=== PATIENT | female | born 1990 | race Hispanic/Latino ===

== ENCOUNTER 2018-09-22 15:10 | Inpatient (IN) | payer OTHER ==
--- OUTSIDE RECORDS SUMMARY | 2018-09-25 04:37 | XMS REPORT | Continuity of Care Document ---
:1990 Author Organization Interface Problems Problem Status Onset Classification Date Comments Source Date Reported CTX Active [address] VAGINAL DEL Active [address] Resolved Problem 12/17/[address] Medications Medication Details Route Status Patient Ordering Order Source Instructions Provider Date tramadol 50 mg=1 tab, PO, Active [place] hydrochloride 50 Q4H, PRN Pain 2017 Medical [facility] Oral Tablet Score 4-6, X 7 Center day, # 42 tab, 0 Refill(s) ibuprofen 600 mg 600 mg=1 tab, Active [facility] oral tablet PO, Q6H, X 14 2016 Medical day, # 56 tab, 0 Center Refill(s) fentaNYL (ANES) Route: IV, Drug Inactive [facility] form: INJ, ONCE, 2016 Medical Stop date: [place] 12/13/16 13:07:00 CDT bupivacaine (ANES) Route: Inactive 12/13[facility] INTRATHECAL, 2016 Medical Drug Form: INJ, [place] ONCE, Stop date: 12/13/16 13:07:00 CDT metoclopramide Route: IV, Drug Inactive [facility] (ANES) form: INJ, ONCE, 2016 Medical Stop date: [place] 12/13/16 13:07:00 CDT famotidine (ANES) Route: IV, Drug Inactive 12/13[facility] form: INJ, ONCE, 2016 Medical Stop date: [place] 12/13/16 13:07:00 CDT ondansetron (ANES) Route: IV, Drug Inactive 12/13[facility] form: INJ, ONCE, 2016 Medical Stop date: [place] 12/13/16 13:07:00 CDT morphine Sulfate Route: IV, Drug Inactive Kadi (ANES) form: INJ, ONCE, 2016 Medical Stop date: [place] 12/13/16 13:02:00 CDT Ondansetron 4 mg, 2 mL, No Longer [facility] Route: IVP, Drug Active 2017 Medical form: INJ, ONCE, Center Dosing Weight 78.636, kg, PRN Nausea & Vomiting, Start date: 12/13/16 12:39:00 CDTNotes: (Same as: Zofran) MEDICATION WASTE Product Size: 4 mg Product Wasted: ___ mg Flumazenil 0.2 mg, 2 mL, No Longer [place] Route: IVP, Drug Active 2016 Medical form: INJ, PRN, Center Dosing Weight 78.636, kg, PRN Benzodiazepine Reversal, Initial dose, Start date: 12/13/16 12:39:00 CDT, Duration: 30 day, Stop date: 01/12/17 12:38:00 CDTNotes: (Same as: Romazicon) Hydromorphone 0.5 mg, 0.25 mL, No Longer [place] Route: IVP, Drug Active 2016 Medical form: INJ, Center Q5Min, Dosing Weight 78.636, kg, PRN Pain Score 7-10, Start date: 12/13/16 12:39:00 CDT, Duration: 4 doses or times, Stop date: 12/14/16 0:00:00 CDTNotes: Same as: Dilaudid Ketorolac 30 mg, 1 mL, Inactive [place] Route: IVP, Drug 2016 Medical form: INJ, ONCE, Center Dosing Weight 78.636, kg, Start date: 12/13/16 12:39:00 CDT, Duration: 1 doses or times, Stop date: 12/13/16 12:39:00 CDTNotes: (Same as:Toradol) IV bolus must be given >15 seconds. Give IM administration slowly and deeply into the muscle. Not for use > 4 days MEDICATION WASTE Product Size: 30 mg Product Wasted: ___ mg Ephedrine 5 mg, 1 mL, No Longer [place] Route: IVP, Drug Active 2016 Medical form: INJ, Center Q5Min, Dosing Weight 78.636, kg, PRN Low Blood Pressure, Start date: 12/13/16 12:39:00 CDT, Duration: 30 day, Stop date: 01/12/17 12:38:00 CDT Naloxone 0.4 mg, 1 mL, No Longer [place] Route: IVP, Drug Active 2016 Medical form: INJ, Center Q2MIN, Dosing Weight 78.636, kg, PRN Narcotic Reversal, Start date: 12/13/16 12:39:00 CDT, Duration: 8 doses or times, Stop date: 12/14/16 0:00:00 CDTNotes: Same as Narcan Fentanyl 25 microgram, No Longer [facility] 0.5 mL, Route: Active 2017 Medical IVP, Drug form: Center INJ, Q5Min, Dosing Weight 78.636, kg, PRN Pain Score 4-6, Priority: Routine, Start date: 12/13/16 12:39:00 CDT, Duration: 4 doses or times, Stop date: 12/14/16 0:00:00 CDTNotes: (Same as: Sublimaze) Preservative free. Labetalol 10 mg, 2 mL, No Longer [place] Route: IVP, Drug Active 2016 Medical form: INJ, Center Q5Min, Dosing Weight 78.636, kg, PRN Elevated BP, Start date: 12/13/16 12:39:00 CDT, Duration: 5 doses or times, Stop date: 12/14/16 0:00:00 CDT Hydralazine 10 mg, 0.5 mL, No Longer [place] Route: IVP, Drug Active 2016 Medical form: INJ, Center Q20Min, Dosing Weight 78.636, kg, PRN Elevated BP, Start date: 12/13/16 12:39:00 CDT, Duration: 2 doses or times, Stop date: 12/14/16 0:00:00 CDTNotes: (Same as: Apresoline) Push over 5 minutes Promethazine 6.25 mg, 0.25 No Longer [place] mL, Route: IVPB, Active 2016 Medical Drug form: INJ, Center ONCE, Dosing Weight 78.636, kg, PRN Nausea & Vomiting, Start date: 12/13/16 12:39:00 CDTNotes: Do not give IV push. (Same as: Phenergan) LR 1000 mL INJ Route: IV, Total Inactive Kadi (ANES) Volume: 1,000, 2017 Medical Start date: Center 12/13/16 12:08:00 CDT, Stop date: 12/13/16 13:08:00 CDT 1 tab, Route: No Longer [place] Multivitamins oral PO, Drug Form: Active 2017 Medical tablet TAB, Dosing Center Weight 78.636, kg, Daily, Start date: 12/13/16 9:00:00 CDT, Duration: 30 day, Stop date: 01/11/17 9:00:00 CDT Ibuprofen 600 mg, 1 tab, No Longer [place] Route: PO, Drug Active 2016 Medical form: TAB, Q6H, Center Dosing Weight 78.636, kg, Start date: 12/13/16 6:00:00 CDT, Duration: 30 day, Stop date: 01/12/17 0:00:00 CDTNotes: (Same as: Guillermina) "Do Not Crush" Take with food. 0.5 ML Bordetella 0.5 mL, Route: No Longer [place] pertussis IM, Drug Form: Active 2017 Medical filamentous SUSP, Dosing Center hemagglutinin Weight 78.636, vaccine, kg, ONCALL, inactivated 0.01 Start date: MG/ML / Bordetella 12/13/16 1:00:00 pertussis fimbriae CDT, Duration: 1 2/3 vaccine, doses or inactivated 0.01 timesNotes: MG/ML / Bordetella (Tdap ) For pertussis Adolecent and pertactin vaccine, Adult use For IM inactivated 0.006 Use. Same as: MG/ML / Bordetella Adacel (Tdap) pertussis toxoid vacci M-M-R II 0.5 mL, Route: No Longer [place] SUB-Q, Drug Active 2016 Medical Form: PDR/INJ, Center Dosing Weight 78.636, kg, ONCALL, Give only if patient rubella non-immune, Start date: 12/13/16 1:00:00 CDT, Duration: 1 doses or timesNotes: (Same as: M-M-R II) (xkujaxd-ioqso-x ubella virus vaccine 0.5 ml INJ VL) WASTE: F/P - Red; E -Red GIVE PRIOR TO DISCHARGE Tramadol 100 mg, 2 tab, No Longer [place] Route: PO, Drug Active 2016 Medical form: TAB, Q6H, Center Dosing Weight 78.636, kg, PRN Pain Score 7-10, Start date: 12/13/16 0:13:00 CDT, Duration: 30 day, Stop date: 01/12/17 0:12:00 CDTNotes: Not to exceed 400mg/day. (Same As: Ultram) Methylergonovine 0.2 mg, 1 mL, No Longer [place] Route: IM, Drug Active 2016 Medical form: INJ, PRN, Center Dosing Weight 78.636, kg, PRN Other -See Comment, Start date: 12/13/16 0:13:00 CDT, Duration: 30 day, Stop date: 01/12/17 0:12:00 CDTNotes: (Same as:Methergine) Benzocaine 200 1 spray, Route: No Longer [place] MG/ML Topical TOP, PRN, Drug Active 2016 Medical [place] [Dermoplast] form: SPRY, PRN Center Irritation, Start date: 12/13/16 0:13:00 CDT, Duration: 30 day, Stop date: 01/12/17 0:12:00 CDTNotes: (Same As: Dermoplast) WASTE: Aerosol - Return to Pharmacy FOR EXTERNAL USE ONLY zolpidem 5 mg, 1 tab, No Longer [place] Route: PO, Drug Active 2016 Medical form: TAB, Center Bedtime, Dosing Weight 78.636, kg, PRN Sleep, Start date: 12/13/16 0:13:00 CDT, Duration: 30 day, Stop date: 01/12/17 0:12:00 CDTNotes: (Same As: Ambien) Docusate 100 mg, 1 cap, No Longer [facility] Route: PO, Drug Active 2016 Medical form: CAP, BID, Center Dosing Weight 78.636, kg, PRN Constipation, Start date: 12/13/16 0:13:00 CDT, Duration: 30 day, Stop date: 01/12/17 0:12:00 CDTNotes: (Same as: Colace) (Do Not Crush) Ondansetron 4 mg, 2 mL, No Longer [place] Route: IVP, Drug Active 2016 Medical form: INJ, Q8H, Center Dosing Weight 78.636, kg, PRN Nausea & Vomiting, Start date: 12/13/16 0:13:00 CDT, Duration: 30 day, Stop date: 01/12/17 0:12:00 CDTNotes: (Same as: Zofran) MEDICATION WASTE Product Size: 4 mg Product Wasted: ___ mg lanolin topical 1 appl, Route: No Longer [place] TOP, PRN, Drug Active 2016 Medical form: OINT, PRN Center Other -See Comment, Start date: 12/13/16 0:13:00 CDT, Duration: 30 day, Stop date: 01/12/17 0:12:00 CDT Bisacodyl 10 mg, 1 supp, No Longer [place] Route: MA, Drug Active 2016 Medical form: SUPP, PRN, Center Dosing Weight 78.636, kg, PRN Other -See Comment, Start date: 12/13/16 0:13:00 CDT, Duration: 30 day, Stop date: 01/12/17 0:12:00 CDTNotes: (Same As: Dulcolax, Bisco-Lax) Lactated Ringers 1,000 mL, Rate: No Longer [place] 1,000 mL 100 ml/hr, Active 2016 Medical Infuse over: 10 Center hr, Route: IV, Dosing Weight 78.636 kg, Total Volume: 1,000, Start date: 12/13/16 0:13:00 CDT, Duration: 30 day, Stop date: 01/12/17 0:12:00 CDT NS-Oxytocin 30 30 unit, 500 mL, No Longer [place] units 500 ml 30 Rate: 42 ml/hr, Active 2016 Medical unit Infuse over: Center 11.9 hr, Dosing Weight 78.636, kg, Route: IV, Total Volume: 500 mL, Start date: 12/13/16 0:13:00 CDT, Duration: 2 day, Stop date: 12/15/16 0:12:00 CDT, Replace Every: 11.9 hr Carboprost 250 microgram, 1 No Longer [place] mL, Route: IM, Active 2016 Medical Drug form: INJ, Center ONCALL, Dosing Weight 78.636, kg, Start date: 12/12/16 19:00:00 CDT, Duration: 30 day, Stop date: 01/11/17 18:59:00 CDTNotes: (Same As: Hemabate) Misoprostol 1,000 microgram, No Longer [place] 5 tab, Route: Active 2016 Medical MA, Drug form: Center TAB, ONCALL, Dosing Weight 78.636, kg, Start date: 12/12/16 19:00:00 CDT, Duration: 1 doses or timesNotes: (Same as:Cytotec) Take with food Famotidine 20 mg, 2 mL, No Longer [place] Route: IVP, Drug Active 2016 Medical form: INJ, Elfego HAZEL, Dosing Weight 78.636, kg, Start date: 12/12/16 19:00:00 CDT, Duration: 30 day, Stop date: 01/11/17 18:59:00 CDTNotes: (Same as: Pepcid) Can be dilute in 5-10cc NS IVP: Slow IV push over at least 2 minutes. Citric Acid / 30 mL, Route: No Longer [place] sodium citrate PO, Drug Form: Active 2016 Medical SOLN, Dosing Center Weight 78.636, kg, ONCALL, Start date: 12/12/16 19:00:00 CDT, Duration: 30 day, Stop date: 01/11/17 18:59:00 CDTNotes: (Same As: Bicitra, Cytra-2) Sodium citrate-citric acid (500-334 mg/5 mL): 1 mL contains sodium 1 mEq/mL and bicarbonate 1 mEq/mL Methylergonovine 0.2 mg, 1 mL, No Longer [facility] Route: IM, Drug Active 2016 Medical form: INJ, Elfego ONCALL, Dosing Weight 78.636, kg, Start date: 12/12/16 19:00:00 CDT, Duration: 30 day, Stop date: 01/11/17 18:59:00 CDTNotes: (Same as:Methergine) NS-Oxytocin 30 30 unit, 500 mL, No Longer [place] units 500 ml 30 Rate: Titrate, Active 2016 Medical unit Dosing Weight Center 78.636, kg, Route: IV, Total Volume: 500 mL, Start date: 12/12/16 18:58:00 CDT, Duration: 2 day, Stop date: 12/14/16 18:57:00 CDT, Replace Every: 24 hr Lidocaine 200 mg, 20 mL, No Longer [place] Hydrochloride 10 Route: PERCUT, Active 2016 Medical MG/ML Injectable Drug Form: INJ, Center Solution Dosing Weight 78.636, kg, PRN, PRN Other -See Comment, Start date: 12/12/16 18:21:00 CDT, Duration: 1 doses or times, Stop date: Limited # of timesNotes: (Same as: Xylocaine) Terbutaline 0.25 mg, 0.25 No Longer [place] mL, Route: Active 2016 Medical SUB-Q, Drug Center form: INJ, PRN, Dosing Weight 78.636, kg, PRN Other -See Comment, Start date: 12/12/16 18:21:00 CDT, Duration: 1 doses or times, Stop date: Limited # of timesNotes: DO NOT USE IN [employer] AREA (Same As: Brethine) Acetaminophen 325 2 tab, Route: No Longer [place] MG / Hydrocodone PO, Drug Form: Active 2016 Medical Bitartrate 5 MG TAB, Dosing Center Oral Tablet Weight 78.636, kg, Q4H, PRN Pain Score 7-10, Start date: 12/12/16 18:21:00 CDT, Duration: 30 day, Stop date: 01/11/17 18:20:00 CDTNotes: (Same as: Accord 325/5) Do not exceed 4gm/day of acetaminophen. Ondansetron 4 mg, 2 mL, No Longer [place] Route: IVP, Drug Active 2016 Medical form: INJ, Q8H, Center Dosing Weight 78.636, kg, PRN Nausea & Vomiting, Start date: 12/12/16 18:21:00 CDT, Duration: 30 day, Stop date: 01/11/17 18:20:00 CDTNotes: (Same as: Srinath) MEDICATION WASTE Product Size: 4 mg Product Wasted: ___ mg Butorphanol 2 mg, 1 mL, No Longer [place] Route: IVP, Drug Active 2016 Medical form: INJ, Q2H, Center Dosing Weight 78.636, kg, PRN Pain Score 7-10, Start date: 12/12/16 18:21:00 CDT, Duration: 30 day, Stop date: 01/11/17 18:20:00 CDTNotes: (Same As: Fausto) MEDICATION WASTE Product Size: 2 mg Product Wasted: ___ mg Ibuprofen 600 mg, 1 tab, No Longer Route: PO, Drug Active 2016 Medical form: TAB, Q6H, Center Dosing Weight 78.636, kg, PRN Other -See Comment, Start date: 12/12/16 18:21:00 CDT, Duration: 30 day, Stop date: 01/11/17 18:20:00 CDTNotes: (Same as: Guillermina) "Do Not Crush" Take with food. Lactated Ringers 1,000 mL, Rate: No Longer [place] 1,000 mL 125 ml/hr, Active 2016 Medical Infuse over: 8 Center hr, Route: IV, Dosing Weight 78.636 kg, Total Volume: 1,000, Start date: 12/12/16 18:21:00 CDT, Duration: 30 day, Stop date: 01/11/17 18:20:00 CDT NS-Oxytocin 30 30 unit, 500 mL, No Longer [place] units 500 ml 30 Rate: 42 ml/hr, Active 2017 Medical unit Infuse over: Center 11.9 hr, Dosing Weight 78.636, kg, Route: IV, Total Volume: 500 mL, Start date: 12/12/16 18:21:00 CDT, Duration: 2 day, Stop date: 12/14/16 18:20:00 CDT, Replace Every: 11.9 hr Calcium Chloride 1,000 mL, 1,000 Inactive [place] 0.0014 MEQ/ML / ml/hr, Infuse 2017 Medical Potassium Chloride Over: 1 hr, Center 0.004 MEQ/ML / Route: IV, Sodium Chloride 1,000, Drug 0.103 MEQ/ML / form: INJ, ONCE, Sodium Lactate Dosing Weight 0.028 MEQ/ML 78.636 kg, Start Injectable date: 12/12/16 Solution 18:21:00 CDT, Stop date: 12/12/16 18:21:00 CDT, Bolus for regional anesthesia per unit protocol Allergies, Adverse Reactions, Alerts Substance Category Reaction Severity Reaction Status Date Comments Source type Reported Immunizations Immunization Date Given Site Status Last Updated Comments Source Results Order Name Results Value Reference Date Interpretation Comments Source Range HEMATOLOGY Monocytes # 0.8 K/CMM 0.0 - 0.8 12/[address] HEMATOLOGY Segs-Bands # 13.4 K/CMM 1.5 - 8.1 12/[address] HEMATOLOGY Lymphocytes # 1.5 K/CMM 1.0 - 5.5 12/[address] HEMATOLOGY Segs 85.2 % 45.0 - 75.0 12/[address] HEMATOLOGY Lymphocytes 9.8 % 20.0 - 40.0 12/[address] HEMATOLOGY Monocytes 4.8 % 2.0 - 12.0 12/[address] HEMATOLOGY Basophils 0.1 % 0.0 - 1.0 12/[address] HEMATOLOGY Eosinophils 0.1 % 0.0 - 4.0 12/[address] HEMATOLOGY MPV 9.9 fL 7.4 - 10.4 12/[address] HEMATOLOGY RDW 20.1 % 11.5 - 14.5 12/[address] HEMATOLOGY Platelet 120 K/CMM 133 - 450 12/[address] HEMATOLOGY MCHC 32.4 g/dL 32.0 - 36.0 12/[address] HEMATOLOGY Hct 32.1 % 36.0 - 48.0 12/[address] HEMATOLOGY MCH 26.8 pg 27.0 - 31.0 12/[address] HEMATOLOGY Hgb 10.4 g/dL 12.0 - 16.0 12/[address] HEMATOLOGY MCV 82.7 fL 80.0 - 98.0 12/[address] HEMATOLOGY RBC 3.89 M/CMM 4.20 - 5.40 12/[address] HEMATOLOGY WBC 15.8 K/CMM 3.7 - 10.4 12/[address] BLOOD BANK Antibody Scrn Negative 12/13 [facility] (12/12/16 7:09 PM) [place] BLOOD BANK ABO/Rh O POS 12/13 [facility] HEMATOLOGY [employer] Occasional 12/[address] HEMATOLOGY Eosinophils # 0.1 K/CMM 0.0 - 0.5 12/[address] HEMATOLOGY Monocytes # 0.6 K/CMM 0.0 - 0.8 12/[address] HEMATOLOGY Lymphocytes # 2.1 K/CMM 1.0 - 5.5 12/[address] HEMATOLOGY Segs-Bands # 8.7 K/CMM 1.5 - 8.1 12/[address] HEMATOLOGY Basophils 0.3 % 0.0 - 1.0 12/[address] HEMATOLOGY Eosinophils 0.7 % 0.0 - 4.0 12/[address] HEMATOLOGY Monocytes 5.2 % 2.0 - 12.0 12/[address] HEMATOLOGY Lymphocytes 18.2 % 20.0 - 40.0 12/[address] HEMATOLOGY Segs 75.6 % 45.0 - 75.0 12/[address] HEMATOLOGY RDW 19.6 % 11.5 - 14.5 12/[address] HEMATOLOGY MCHC 32.8 g/dL 32.0 - 36.0 12/[address] HEMATOLOGY MCH 27.2 pg 27.0 - 31.0 12/[address] HEMATOLOGY MCV 82.8 fL 80.0 - 98.0 12/[address] HEMATOLOGY Hct 33.0 % 36.0 - 48.0 12/[address] HEMATOLOGY Hgb 10.8 g/dL 12.0 - 16.0 12/[address] HEMATOLOGY RBC 3.99 M/CMM 4.20 - 5.40 12/[address] HEMATOLOGY WBC 11.5 K/CMM 3.7 - 10.4 12/[address] HEMATOLOGY MPV 9.9 fL 7.4 - 10.4 12/13 [facility] HEMATOLOGY Platelet 130 K/CMM 133 - 450 12/13 [facility] IMMUNOLOGY Hep Bs Ag Negative Negative 12/13 [facility] [place] (12/12/16 7:09 PM) IMMUNOLOGY HIV. Negative Negative 12/13 [facility] [place] (12/12/16 7:09 PM) IMMUNOLOGY Treponemal Non Reactive Non 12/13 [facility] Scr Reactive [facility] [place] (12/12/16 7:09 PM) Vital Signs Vital Sign Value Date Comments Source Respitory Rate 20 12/15/2016 [facility] Systolic (mm Hg) 121 12/15/2016 [facility] Diastolic (mm Hg) 72 12/15/2016 [facility] Temperature Oral (F) 99.6 F 12/15/2016 [facility] Heart Rate 94 12/15/2016 [facility] Heart Rate 103 12/14/2016 [facility] Respitory Rate 18 12/14/2016 [facility] Systolic (mm Hg) 121 12/14/2016 [facility] Diastolic (mm Hg) 73 12/14/2016 [facility] Temperature Oral (F) 99.5 F 12/14/2016 [facility] Respitory Rate 18 12/14/2016 [facility] Systolic (mm Hg) 103 12/14/2016 [facility] Diastolic (mm Hg) 65 12/14/2016 [facility] Temperature Oral (F) 98.9 F 12/14/2016 [facility] Heart Rate 102 12/14/2016 [facility] Weight 78.636 12/12/2016 [facility] Height 157.48 cm 12/12/2016 [facility] BMI Calculated 31.71 12/12/2016 [facility] Weight 78.636 12/12/2016 [facility] Height 157.48 cm 12/12/2016 [facility] BMI Calculated 31.71 12/12/2016 [facility] Encounters Location Location Encounter Encounter Reason Attending ADM DC Status Source Details Type Number For Provider Date Date Visit [facility] [id number] [place] 12/12 12/15 [facility] Procedures Procedure Code Date Perfomer Comments Source
[2018-09-25] MEDS ORDERED: CARBOPROST TROME 250 MCG/ML IM PRN (04:40)
[2018-09-25] MEDS ORDERED: PROMETHAZINE 25 MG/ML VIAL IM PRN (04:40)
[2018-09-25] MEDS ORDERED: METHYLERGONOVINE 0.2MG/ML AMP IM PRN ×2 (04:40→21:48)
[2018-09-25] MEDS ORDERED: Ringers Lactate 1,000 ML IV PRN (04:40)
[2018-09-25] MEDS ORDERED: MIDAZOLAM HCL 2 MG/2 ML INJ IV PRN (04:40)
[2018-09-25] MEDS ORDERED: MEPERIDINE HCL 25 MG/0.5 ML IV PRN (04:40)
[2018-09-25] MEDS ORDERED: OXYTOCIN/LR 20 UNITS/1,000 ML BAG IV SCH (05:00)
[2018-09-25] MEDS ORDERED: Ringers Lactate 1,000 ML IV SCH (05:00)
[2018-09-25] MEDS ORDERED: OXYTOCIN/LR 1,000 ML IV SCH (05:00)
[2018-09-25 05:23] VITALS: BMI 30.6
[2018-09-25 06:09] LABS: RPR Titer ND
[2018-09-25 06:22] LABS: Urine Appearance CLEAR; Urine Bilirubin NEGATIVE (NEG); Urine Blood TRACE (NEG); Urine Color YELLOW; Urine Glucose NEGATIVE (NEG); Urine Protein NEGATIVE (NEG); Urine Specific Gravity 1.015 (1.005-1.030)
[2018-09-25 06:31] LABS: Urine Microscopic Reflex ORDER UMIC
[2018-09-25 06:33] LABS: Urine Bacteria 20-50 /HPF (<20); Urine RBC <5 /HPF (NONE SEEN)
[2018-09-25 06:34] LABS: Urine Culture Reflex Order REFLEXED
--- NOTE | 2018-09-25 09:13 | RAD REPORT ---
EXAM DESCRIPTION: US - OB Limited - 09/25/2018 8:13 am CLINICAL HISTORY: presentation age. COMPARISON: OB Complete dated 09/21/2018 FINDINGS: A limited OB ultrasound was requested to assess presentation. A single transverse with head to maternal left presenting gestation is identified. Heart rate normal.
[2018-09-25] MEDS ORDERED: NA CIT/CITRIC AC 30 ML ORAL UDC PO ONE (11:47)
--- NOTE | 2018-09-25 11:47 | RAD REPORT ---
EXAM DESCRIPTION: US - OB Limited - 09/25/2018 11:38 am FINDINGS: Limited OB ultrasound was performed for position assessment. Single gestation is identified in breech presentation.
[2018-09-25] MEDS ORDERED: CEFAZOLIN/NS 1gm 1 GM/50 ML BAG IVPB ONE (11:49)
--- NOTE | 2018-09-25 11:53 | PN ---
Baby has converted apparently from transverse to breech on an ultrasound; however, on my exam, I trisha ot tell because the presenting part is still significantly above my fingers and I cannot touch the ba by. Obviously, the baby is in a very unstable lie. Again, the patient is not in labor. We have dis cussed options. I think that either we should transfer her to [facility] and let them try to convert the b steve into vertex and deliver over there, or at this point, I would recommend section. The pa abraham knows that she could leave the hospital, but it would be against our medical advice and if rupt ure of membranes occurs at home significantly concerned there could be a cord accident type problem w ith a prolapsed cord. Full discussion with the patient and family. We need to make a decision reaso nably soon. It has been 4-1/2 hours since my initial exam. GISSEL/PENNY Voice ID: [id number] Report ID: [id number]
[2018-09-25] MEDS ORDERED: METOCLOPRAMIDE 10 MG/2mL INJ IV SCH (12:00)
[2018-09-25] MEDS ORDERED: CEFAZOLIN/SWI 1gm 1 GM/10 ML SYR IV SCH (12:00)
--- NOTE | 2018-09-25 12:02 | PN ---
The patient has decided after thorough counseling that she wishes to proceed with here. Inf ection, blood loss, anesthetic complications, injury to bladder, bowel, or ureter, postoperative comp lications, clots in legs, discussed. Again, I offered to transfer to [facility] for rotation attempt, she has declined, also talked about sending her home, but I do not feel comfortable with that although el zapata knows we cannot prevent her from going home AMA if she wishes. We will take her to surgical area a nd before Dr. Arce does the spinal, I will check her 1 last time to see if she has rotated. If el zapata has, we will bring her back to her room and rupture of membranes. If not, we will proceed on with section. GISSEL/PENNY Voice ID: [id number] Report ID: [id number]
[2018-09-25] MEDS ORDERED: LIDOCAINE 1% MPF 5 ML VIAL ONE ×2 (12:40→20:34)
[2018-09-25] MEDS ORDERED: OXYTOCIN 10 UNIT/ML ML IV ONE ×2 (12:40→20:34)
[2018-09-25] MEDS ORDERED: MORPHINE SULFATE/PF 1 MG/ML (10 ML AMP) ONE ×2 (12:40→20:33)
--- NOTE | 2018-09-25 12:47 | PREOPHP ---
Date of Admission: 09/25/2018 A 27-year-old multiparous female, 4, para 3. The patient has had a previous tubal sterilizat ion procedure, which failed. She is now 39 weeks and 1 day. In the office, she was 2.5 cm, vertex, -1 station. She came to Labor and Delivery at 4 a.m., was started on Pitocin, but no pelvic check wa s done. When I came in this morning, the patient is very posterior and I cannot tell the position of the baby. Ultrasound demonstrated transverse lie with the baby's head on maternal left. Pitocin di scontinued. At this point, options given. We have told the patient she could be transferred to [facility] where they get attempt to rotation and if it was not successful, they do a . We can send patient home, bring her back Friday and see if the baby is spontaneously rotated. She knows though if she goes in labor over the weekend, it is urgent that she get back in immediately. If she has ru pture of membranes, there is a possibility for prolapsed cord. section also discussed this morning. Infection, bleeding, anesthetic complications, clots in legs, all discussed. The patient k nows full well this does not constitute all the possible problems. The patient is not in active labo r at this point, so there is no emergency. She will discuss it with her and then we will dec lillian what course of action to take, but at this point, of course, Pitocin has been stopped. GISSEL/PENNY Voice ID: [id number]
--- NOTE | 2018-09-25 12:47 | PN ---
Baby has been shown to be transverse with the head towards maternal left. The patient is not in labo r. There is no rupture of membranes. She wants to walk a while and see if that can maybe change the baby's position. I think that is a reasonable request. The baby looks excellent on the monitor. T here are no signs of any problems at this point. There is no particular time frame here, but during the next 1 to 3 hours or so, if the baby is not rotated and we need to choose a different course of a ction either send her to [facility] for rotation attempt or even dismiss her to come back to my office on M onday although I think that is not the best option since she knows if she ruptures membranes at home, there could be a chance of a prolapsed cord. Full discussion. GISSEL/PENNY Voice ID: [id number] Report ID: [id number]
[2018-09-25] MEDS ORDERED: BUPIVACAINE 0.75% (PF) 2 ML SP ONE ×2 (13:34→20:35)
--- NOTE | 2018-09-25 18:50 | PN ---
Patient is now starting to contract. She is about 5 cm. Baby is still -2 station, but still vertex. Baby looks excellent on the monitor. We will move her back to her room and continue the labor proc ess there. GISSEL/PENNY Voice ID: [id number] Report ID: [id number]
--- NOTE | 2018-09-25 19:10 | PN ---
Patient is good more regularly now. Baby looks excellent on the monitor but she is still 5 cm , still very high, -2 station. Baby has not come down at all. We will continue to increase the stre ngth with contractions and hopefully get more rapid progress. Her other babies weighed in almost 10 pounds. This one is estimated less at 9 or thereabouts. Once we start seeing some descent of the ba by, I think, we will see more rapid progress. GISSEL/PENNY Voice ID: [id number] Report ID: [id number]
--- NOTE | 2018-09-25 19:47 | PN ---
The patient is having contractions now every 2-3 minutes, but she has made absolutely no change. The cervix is still posterior 4-1/2, possibly 5, but the baby is still very high at -2 station vertex. Fluid is clear. We will continue to increase the Pitocin, but you would anticipate that multiparous female, should progress rather rapidly from this point forward but she is not making good progress. If no progress whatsoever during next 2-3 hours, we will again consider the possibility for . GISSEL/PENNY Voice ID: [id number] Report ID: [id number]
[2018-09-25] MEDS ORDERED: METHYLERGONOVINE 0.2MG/ML AMP IM ONE ×2 (20:11→21:04)
[2018-09-25] MEDS ORDERED: METOCLOPRAMIDE 10 MG/2mL INJ ONE (20:12)
[2018-09-25] MEDS ORDERED: NA CIT/CITRIC AC 30 ML ORAL UDC ONE (20:12)
[2018-09-25] MEDS ORDERED: CEFAZOLIN/SWI 1gm 0 GM/0 ML SYR ONE (20:13)
[2018-09-25] MEDS ORDERED: FAMOTIDINE 20 MG/2 ML VIAL IV ONE (20:13)
[2018-09-25] MEDS ORDERED: CEFAZOLIN/SWI 2gm 2 GM/20 ML SYR ONE (20:15)
[2018-09-25 20:53] LABS: RPR (Rapid Plasma Reagin) NON-REACT (NON-REACT)
[2018-09-25] MEDS ORDERED: KETAMINE HCL 500 MG/5 ML VIAL ONE (20:59)
[2018-09-25] MEDS ORDERED: MIDAZOLAM HCL 2 MG/2 ML INJ ONE (21:00)
[2018-09-25] MEDS ORDERED: CARBOPROST TROME 250 MCG/ML IM ONE (21:02)
[2018-09-25] MEDS ORDERED: ONDANSETRON 4 MG/2 ML VIAL IV PRN (21:48)
[2018-09-25] MEDS ORDERED: ACETAMINOPHEN 500 MG TAB PO PRN ×2 (21:48)
[2018-09-25] MEDS ORDERED: Oxycodone HCl/Acetaminophen 1 TAB TAB PO PRN (21:48)
[2018-09-25] MEDS ORDERED: BISACODYL 10 MG RECTAL SUPP RECT PRN (21:48)
[2018-09-25] MEDS ORDERED: ONDANSETRON 4 MG (ODT) TAB PO PRN (21:48)
[2018-09-25] MEDS ORDERED: KETOROLAC 30 MG/ML INJ IM PRN (21:48)
[2018-09-25] MEDS ORDERED: DIPHENHYDRAMINE 25 MG TAB/CAP PO PRN (21:48)
[2018-09-25] MEDS ORDERED: D5LR 1,000 ML with OXYTOCIN 20 UNIT IV SCH ×2 (22:00)
[2018-09-25] MEDS ORDERED: OXYTOCIN/LR 20 UNIT/1,000 ML BAG IV SCH (22:00)
[2018-09-25] MEDS ORDERED: METHYLERGONOVINE 0.2 MG TAB PO ONE (23:57)
--- NOTE | 2018-09-26 00:02 | PN ---
The patient is on 24 milliunits and is making good progress now. FHTs are normal and reactive. She is about 6-1/2. Baby now is directly into the cervical canal, about -1 station, still about 70% effa hunter. I think we should be in the active phase of labor and we should be completely dilated within th e next 1-1/2 to 2 hours if we go according to what we would think 4 would do. Full discussio n with the patient and her . GISSEL/PENNY Voice ID: [id number] Report ID: [id number]
--- NOTE | 2018-09-26 01:38 | PN ---
Subjective: Patient has made absolutely no cervical change. She has not brought the baby down and i s about 7-1/2 to 8 hours now in spite of being on 1.26 milliunits of Pitocin. She is on 24 now. Bab y looks excellent. She is good every 2 minutes. The baby is very unstable. Her abdomen is s o lax that when the baby comes forward the cervix moves away to the back and when the baby is in the normal position the cervix is centered correctly. In any event, the cervix is starting to become rishi matous now. The baby has not changed position and has not come down at all nor is she dilated any in the last 6 hours or more. We will proceed with at this time. Anesthesia, surgical crew, a nd delinquent tax collector assistant surgeon all notified. GISSEL/PENNY Voice ID: [id number] Report ID: [id number]
[2018-09-26] MEDS: METHYLERGONOVINE 0.2 MG TAB PO PRN ×4 (04:00→12:15)
[2018-09-26] MEDS ORDERED: CEFAZOLIN 1GM (PREMIX IV) 1 GM/50 ML BAG IV ONE (06:00)
--- NOTE | 2018-09-26 06:31 | OP ---
Surgeon: Tera Rizzo MD Indications: A 27-year-old 4, para 3, 39 weeks 1 day, very unstable lie. At one point , the baby was transverse, then breech, then switched to vertex right before section was to be performed. Rupture of membranes, but the patient never progressed beyond 6 cm, and the baby never came down past -2 station. She used Lamaze breathing techniques to best advantage during the labor. Full preoperative counseling concerning procedure and possible complications, including infection, blood loss, anesthetic complications, injury to bladder, bowel, ureter, postoperative complications, clots in legs, pneumonia. The patient knows fully well this does not constitute all the possible pro blems that could occur during or following surgery. The patient has had a previous tubal sterilizati on in [place], but was disallowed to have a tubal at this institution. Facility Security Officer Surgeon: Dr. Walter. Anesthesia: Dr. Arce. Spinal block was performed, but it was inadequate on the right side, and t herefore, IV ketamine was used. Procedure In Detail: After time-out, a Pfannenstiel incision was made. The incision was carried to the fascia. The fascia was incised and incision carried transversely bilaterally. Anterior fascial plane was developed with both blunt and sharp dissection. The underlying rectus muscle was . Peritoneum entered bluntly. Low transverse uterine incision created. A 9-pound, 10- ounce female was delivered without difficulty. Apgars 9 and 9. Placenta was removed manually. Uterus cleared o f clot and blood and exteriorized. Huye-lv-wpfkyyqe hypotonus, IV drip Pitocin, massage, and 0.2 mg of Methergine IM. Uterus was extremely edematous from the long labor. The uterus was closed in 2 la yers and multiple hfmpun-[id number]-dbfpc stitches were necessary along the suture line for complete hemostas is. Estimated blood loss 1200 to 1300 cc. After repair of the uterine incision, the uterus was repl aced into the peritoneal cavity, was removed for 1 more trsnzo-jt-fmisz stitch in the left angle and then replaced. No further bleeding was seen. At this point, the rectus muscles were approximated wi th 2 stitches of 0 Vicryl. The fascia was then closed with 1 Vicryl running from either angle to mid line. Subcutaneous tissue was closed with 2-0 plain. Absorbable fannie placed and then metal stapl es. The patient had been given 2 g of Ancef prior to the procedure. Tolerated all procedures well, transferred back to her room in good condition. Final Diagnoses: Intrauterine gestation, 39 weeks 1 day. Failure to progress in labor. Unstable fe josie lie. Primary section. Moderate uterine hypotonus. GISSEL/PENNY Voice ID: [id number] Report ID: [id number]
[2018-09-26] MEDS: FERROUS SULFATE 325 MG TAB PO SCH ×2 (08:15→20:49)
[2018-09-26] MEDS: DOCUSATE NA/SENNA CONC 1 TAB PO SCH (08:15)
[2018-09-26] MEDS: KETOROLAC 30 MG/ML INJ IV PRN ×2 (08:45→17:30)
--- NOTE | 2018-09-26 11:45 | PN ---
Postoperatively, she is doing well. Output is good. Vital signs are all stable. H and H with expec power change. She admits she was not taking her vitamins prior to admission. Came in with a hematocrit of 31 and now it is around 25.5 to 26. Pulse is in the 70-80 range. She looks very stabl e at this point. Full postoperative talk given. We will discontinue her Torres and IV later in the d ay. She has not had her Tdap shot. We will make sure she gets that before she is dismissed. We jas l keep the patient today, possibly home tomorrow afternoon, if not Friday morning. GISSEL/PENNY Voice ID: [id number] Report ID: [id number]
[2018-09-26] MEDS ORDERED: FAMOTIDINE 20 MG/2 ML VIAL IV ONE (11:48)
[2018-09-26] MEDS ORDERED: D5LR 1,000 ML IV ONE (12:05)
[2018-09-26] MEDS: IBUPROFEN 200 MG TAB PO PRN ×2 (13:14→20:50)
[2018-09-26] MEDS ORDERED: MAGNESIUM HYDROXIDE 8% 30 ML PO PRN (21:49)
[2018-09-27] MEDS: IBUPROFEN 200 MG TAB PO PRN (07:20)
[2018-09-27] MEDS: FERROUS SULFATE 325 MG TAB PO SCH (08:00)
[2018-09-27] MEDS: DOCUSATE NA/SENNA CONC 1 TAB PO SCH (08:48)
[2018-09-27] MEDS ORDERED: Tdap (Diph,Pertuss(Acell),Tet Vac) 0.5 ML SYR IMVAC ONE (11:54)
[2018-09-27 12:19] VITALS: BP 101/61; TEMP 98.6
--- NOTE | 2018-09-28 03:08 | DS ---
Date of Discharge: 09/27/2018 A 27-year-old 4, para 3, underwent primary section for failure to progress in labor. Very unstable lie during her labor. The baby was first transverse then breech and vertex but never descended beyond below -1 to -2 station. 6-7 hours of no cervical change. At approximately 6 cm. W as delivered of a 9 pounds, 4 ounce female. Apgars 9 and 9. Spinal block anesthesia. Noted to have moderate uterine hypotonus and bleeding from the uterine incision itself. Estimated blood loss 1200 cc. Ancef for prophylaxis. The patient has been offered her Tdap immunization multiple times durin g her and again prior to dismissal. She is Rh positive and immune to Rubella. No post spi nal block problems. The patient declines narcotics, wants Motrin for analgesia. We will see if she wants to go home this afternoon. If not, then we will keep her until tomorrow morning. The patient was anemic on admission. Admits that she has not taken any vitamins or iron. Encouraged to do so but we will see. Hematocrit went from approximately 31 on admission to 25 postop. The patien t quite stable though and ambulating without difficulties. Final Diagnoses: Term intrauterine 39 weeks 1 day, failure to progress in labor. Spinal b lock anesthesia. Primary section low transverse cervical. Moderate uterine hypotonus. Ble eding from the uterine incision which was very edematous, subsequent uncomplicated postoperative cour se. GISSEL/PENNY Voice ID: [id number] Report ID: [id number]
[2018-09-28 05:08] LABS: HBsAG Nonreactive (Nonreactive)
== END 2018-09-27 12:10 | disposition home or self-care (01) | DRG 788 ==
LOC: 2ND-WC 09-25 04:04
PROVIDERS: ADMIT Specialist; ATTEND Specialist
PROC: 10907ZC Drainage of Amniotic Fluid, Therapeutic from Products of Conception, Via Natural or Artificial Opening (ICD-10-PCS; 2018-09-25)
PROC: 10D00Z1 Extraction of Products of Conception, Low, Open Approach (ICD-10-PCS; principal; 2018-09-25 19:58)
DX: O32.0XX0 Maternal care for unstable lie, not applicable or unspecified (principal); O62.0 Primary inadequate contractions; O62.1 Secondary uterine inertia; Z3A.39 39 weeks gestation of pregnancy; Z37.0 Single live birth
CPT/HCPCS: 36415; 76815; 81003; 81015; 85014; 85025; 86592; 86901; 87086; 87088; 87340; 88307; 90715; J0690; J2210; J2250; J2590; J2765

== ENCOUNTER 2020-10-16 21:07 | Emergency (ER) | payer OTHER, SELFPAY ==
[2020-10-16 22:42] LABS: Absolute Lymphocytes (CBC) 1.3 K/uL (0.7-4.9); Basophils % 0.2 % (0-1.3); Hematocrit 43.3 % (36.0-45.0); Lymphocytes % 9.9 % (15.3-44.8); MPV 10.7 fL (7.6-11.3); RBC Red Blood Cell Count 4.92 M/uL (3.86-4.86)
[2020-10-16] MEDS ORDERED: MORPHINE 4 MG/ML SYR ONE (22:52)
[2020-10-16] MEDS ORDERED: ONDANSETRON 4 MG/2 ML VIAL ONE (22:52)
[2020-10-16] MEDS ORDERED: NA CHLORIDE 0.9% 1,000 ML ONE (22:56)
[2020-10-16 23:02] LABS: ALT/SGPT 38 U/L (12-78); AST/SGOT 19 U/L (15-37); Albumin 4.3 g/dL (3.4-5.0); Alkaline Phosphatase 81 U/L (45-117); BUN Blood Urea Nitrogen 19 mg/dL (7-18); Bicarbonate 25 mmol/L (21-32); Bilirubin Direct 0.1 mg/dL (0-0.2); Bilirubin Total 0.5 mg/dL (0.2-1.0); Glucose Level 86 mg/dL (74-106); Lipase 91 U/L (73-393); Potassium 3.3 mmol/L (3.5-5.1); Protein, Total 8.1 g/dL (6.4-8.2); Sodium Level 140 mmol/L (136-145)
[2020-10-17] LABS: Urine Blood 3+ (NEG); Urine Glucose NEGATIVE (NEG); Urine Protein NEGATIVE (NEG); Urine Specific Gravity >1.030 (1.005-1.030)
[2020-10-17] MEDS ORDERED: MORPHINE 2 MG/ML SYR ONE (00:11)
[2020-10-17] MEDS ORDERED: ONDANSETRON 4 MG/2 ML VIAL ONE (01:43)
--- NOTE | 2020-10-17 02:15 | ER ---
Nurse's Notes [facility] Name: Brunilda Luis Age: 29 yrs Sex: Female : 1990 Arrival Date: 10/16/2020 Time: 21:18 Bed 25 Private MD: Diagnosis: Upper abdominal pain, unspecified Presentation: 10/16 21:23 Chief complaint: Patient states: Epigastric/RUQ abd pain with N/V since noon. Happened ll1 last weekend, but never got checked. On Mirena, shouldn't be . Coronavirus screen: Client denies travel out of the [place] in the last 14 days. At this time, the client does not indicate any symptoms associated with coronavirus-19. Ebola Screen: Patient denies travel to an Ebola-affected area in the 21 days before illness onset. Initial Sepsis Screen: Does the patient meet any 2 criteria? HR > 90 bpm. No. Patient's initial sepsis screen is negative. Does the patient have a suspected source of infection? Yes: Acute abdominal pain. Risk Assessment: Do you want to hurt yourself or someone else? Patient reports no desire to harm self or others. Onset of symptoms was October 16, 2020. 21:23 Method Of Arrival: Ambulatory ll1 21:23 Acuity: [place] 3 ll1 Triage Assessment: 22:30 General: Appears in no apparent distress. Behavior is calm, cooperative, appropriate ll2 for age. 22:30 Pain: Complains of pain in right upper quadrant. GI: Pt is actively vomiting bile. 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 - Social history:: Smoking status: Patient denies any tobacco usage or history of. Screenin:21 Abuse screen: Denies threats or abuse. Nutritional screening: No deficits noted. ll2 Tuberculosis screening: No symptoms or risk factors identified. Fall Risk None identified. Assessment: 22:30 Reassessment: spoke with Dexter in Xray to verify if US in house, Dexter states yes still sg here. Dexter to notify US of the order submitted by Arpan. 23:30 Reassessment: Patient and/or family updated on plan of care and expected duration. Pain ll2 level reassessed. Patient is alert, oriented x 3, equal unlabored respirations, skin warm/dry/pink. 10/17 00:56 Reassessment: Patient and/or family updated on plan of care and expected duration. Pain ll2 level reassessed. Patient is alert, oriented x 3, equal unlabored respirations, skin warm/dry/pink. 01:53 Reassessment: Patient and/or family updated on plan of care and expected duration. Pain ll2 level reassessed. Patient is alert, oriented x 3, equal unlabored respirations, skin warm/dry/pink. pt still actively vomiting, ERD notified. 02:29 Reassessment: Patient and/or family updated on plan of care and expected duration. Pain ll2 level reassessed. Patient is alert, oriented x 3, equal unlabored respirations, skin warm/dry/pink. Vital Signs: 10/16 21:23 BP 130 / 74; Pulse 97; Resp 17; Temp 97.9; Pulse Ox 100% ; Weight 61.23 kg; Height 5 ll1 ft. 2 in. (157.48 cm); Pain 8/10; 22:45 BP 116 / 70; Pulse 92; Resp 18; Temp 98.5; Pulse Ox 100% on R/A; Pain 8/10; fu 10/17 01:52 BP 118 / 71; Pulse 97; Resp 18; Pulse Ox 97% on R/A; ll2 10/16 21:23 Body Mass Index 24.69 (61.23 kg, 157.48 cm) ll1 ED Course: 10/16 21:18 Patient arrived in ED. cl3 21:22 Arm band placed on. ll1 21:25 Triage completed. ll1 22:00 Patient has correct armband on for positive identification. Bed in low position. Call ll2 light in reach. Side rails up X 1. 22:00 Pulse ox on. NIBP on. ll2 22:13 Dat Saleem PA is PHCP. robin 22:13 Toby Darby MD is Attending Physician. jm 22:20 Inserted saline lock: 20 gauge in left antecubital area, using aseptic technique. Blood ll2 collected. 22:21 Estefania Ragsdale, RN is Primary Nurse. ll2 22:27 Urine collected: clean catch specimen, cloudy, blood tinged. Patient maintains SpO2 jp3 saturation greater than 95% on room air. 02 00:15 CT Abd/Pelvis - IV Contrast Only In Process Unspecified. EDMS 02:29 No provider procedures requiring assistance completed. IV discontinued, intact, ll2 bleeding controlled, No redness/swelling at site. Pressure dressing applied. Administered Medications: 10/16 22:44 Drug: NS 0.9% 1000 ml Route: IV; Rate: 1 bolus; Site: left antecubital; ll2 23:30 Follow up: Response: No adverse reaction; IV Status: Completed infusion; IV Intake: ll2 1000ml 22:46 Drug: morphine 4 mg Route: IVP; Site: left antecubital; fu 23:52 Follow up: Response: No adverse reaction ll2 22:46 Drug: Zofran (Ondansetron) 4 mg Route: IVP; Infused Over: 2 mins; Site: left fu antecubital; 23:51 Follow up: Response: No adverse reaction ll2 23:52 Drug: morphine 2 mg Route: IVP; Site: left antecubital; ll2 10/17 00:56 Follow up: Response: No adverse reaction ll2 Point of Care Testing: Urine : 10/16 22:27 hCG Reading: Negative; Control Reading: Positive; jp3 Intake: 23:30 IV: 1000ml; Total: 1000ml. ll2 Outcome: 10/17 02:14 Discharge ordered by . [facility] 02:29 Discharged to home ambulatory. ll2 02:29 Condition: stable 02:29 Discharge instructions given to patient, Instructed on discharge instructions, follow up and referral plans. medication usage, Demonstrated understanding of instructions, follow-up care, Prescriptions given X 2. 02:30 Patient left the ED. ll2 Signatures: Dispatcher [employer] EDMS Howard Saenz RN RN sg Mickail, Joel, PA PA jmm Umadhay, Felix, RN RN fu Alzahri, Mohammad, MD MD ma2 Pisarski, Jacob jp3 Agus Bacon3 Estefania Ragsdale RN RN ll2 Jordi, Lynsay, RN RN ll1
--- NOTE | 2020-10-17 02:15 | EDPHYS ---
Physician Documentation [facility] Name: Brunilda Luis Age: 29 yrs Sex: Female : 1990 Arrival Date: 10/16/2020 Time: 21:18 Bed 25 Private MD: ED Physician Toby Darby HPI: 10/16 22:43 This 29 yrs old Female presents to ER via Ambulatory with complaints of jmm Abdominal Pain, Nausea/Vomiting. 22:43 The patient presents with abdominal pain. Onset: The symptoms/episode began/occurred jmm gradually, today. The symptoms radiate to Associated signs and symptoms: Pertinent positives: vomiting. The symptoms are described as achy, sharp. Modifying factors: The symptoms are alleviated by nothing, the symptoms are aggravated by nothing. This is a 29 year old female with no chronic medical conditions that presents to the ED with complaints of epigastric pain beginning earlier today with vomiting. Similar episode 1 week prior. . 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 - Social history:: Smoking status: Patient denies any tobacco usage or history of. ROS: 22:43 Constitutional: Negative for fever, chills, and weight loss, Cardiovascular: Negative jmm for chest pain, palpitations, and edema, Respiratory: Negative for shortness of breath, cough, wheezing, and pleuritic chest pain. 22:43 Abdomen/GI: Positive for abdominal pain, nausea and vomiting. 22:43 All other systems are negative. Exam: 22:43 Constitutional: This is a well developed, well nourished patient who is awake, alert, jmm and in no acute distress. Head/Face: atraumatic. Eyes: EOMI, no conjunctival erythema appreciated ENT: Moist Mucus Membranes Neck: Trachea midline, Supple Chest/axilla: Normal chest wall appearance and motion. Cardiovascular: Regular rate and rhythm. No edema appreciated Respiratory: Normal respirations, no respiratory distress appreciated 22:43 Back: Normal ROM Skin: General appearance color normal MS/ Extremity: Moves all extremities, no obvious deformities appreciated, no edema noted to the lower extremities Neuro: Awake and alert, normal gait Psych: Behavior is normal, Mood is normal, Patient is cooperative and pleasant 22:43 Abdomen/GI: Inspection: abdomen appears normal, Bowel sounds: normal, Palpation: soft, moderate abdominal tenderness, in the right upper quadrant. 10/17 02:12 Abdomen/GI: Soft, non-tender, with normal bowel sounds. No distension or tympany. No ma2 guarding or rebound. No evidence of tenderness throughout. Vital Signs: 10/16 21:23 BP 130 / 74; Pulse 97; Resp 17; Temp 97.9; Pulse Ox 100% ; Weight 61.23 kg; Height 5 ll1 ft. 2 in. (157.48 cm); Pain 8/10; 22:45 BP 116 / 70; Pulse 92; Resp 18; Temp 98.5; Pulse Ox 100% on R/A; Pain 8/10; fu 10/17 01:52 BP 118 / 71; Pulse 97; Resp 18; Pulse Ox 97% on R/A; ll2 10/16 21:23 Body Mass Index 24.69 (61.23 kg, 157.48 cm) ll1 MDM: 10/16 22:31 Patient medically screened. [facility] 10/17 02:12 Differential diagnosis: gastritis, pancreatitis, diverticulitis, viral gastroenteritis, ma2 gastroenteritis. Data reviewed: vital signs, nurses notes. Counseling: I had a detailed discussion with the patient and/or guardian regarding: the historical points, exam findings, and any diagnostic results supporting the discharge/admit diagnosis, the presence of at least one elevated blood pressure reading (>120/80) during this emergency department visit, the need for outpatient follow up. Response to treatment: the patient's symptoms have resolved after treatment. ED course: patient tolerate po. i advised to see her pcp in the next 2 days for abdominal us, if pain recur. . 10/16 22:23 Order name: Basic Metabolic Panel 2 10/16 22:23 Order name: CBC with Diff; Complete Time: 23:00 ll2 10/16 22:23 Order name: Hepatic Function; Complete Time: 23:07 ll2 10/16 22:23 Order name: Lipase; Complete Time: 23:07 ll2 10/16 22:23 Order name: Basic Metabolic Panel; Complete Time: 23:07 EDOR 10/16 22:28 Order name: Urine Dipstick--Ancillary (enter results); Complete Time: 00:04 mw2 10/16 22:28 Order name: Urine --Ancillary (enter results); Complete Time: 00:04 mw2 10/16 23:40 Order name: CT Abd/Pelvis - IV Contrast Only jmm 10/16 22:23 Order name: IV Saline Lock; Complete Time: 22:23 ll2 10/16 22:23 Order name: Labs collected and sent; Complete Time: 22:23 ll2 10/16 22:28 Order name: Urine Dipstick-Ancillary (obtain specimen); Complete Time: 22:44 mw2 10/16 22:28 Order name: Urine Test (obtain specimen); Complete Time: 22:44 mw2 Administered Medications: 10/16 22:44 Drug: NS 0.9% 1000 ml Route: IV; Rate: 1 bolus; Site: left antecubital; 2 23:30 Follow up: Response: No adverse reaction; IV Status: Completed infusion; IV Intake: ll2 1000ml 22:46 Drug: morphine 4 mg Route: IVP; Site: left antecubital; 23:52 Follow up: Response: No adverse reaction ll2 22:46 Drug: Zofran (Ondansetron) 4 mg Route: IVP; Infused Over: 2 mins; Site: left fu antecubital; 23:51 Follow up: Response: No adverse reaction ll2 23:52 Drug: morphine 2 mg Route: IVP; Site: left antecubital; 2 10/17 00:56 Follow up: Response: No adverse reaction 2 Point of Care Testing: Urine : 10/16 22:27 hCG Reading: Negative; Control Reading: Positive; jp3 Disposition: 10/17/20 02:14 Discharged to Home. Impression: Upper abdominal pain, unspecified. - Condition is Stable. - Discharge Instructions: Abdominal Pain, Adult. - Prescriptions for Zofran 4 mg Oral Tablet - take 1 tablet by ORAL route every 12 hours As needed; 20 tablet. Pepcid 20 mg Oral Tablet - take 1 tablet by ORAL route once daily; 20 tablet. - Medication Reconciliation Form, Thank You Letter, Antibiotic Education, Prescription Opioid Use form. - Follow up: Private Physician; When: Tomorrow; Reason: Continuance of care. Addendum: 10/18/2020 06:58 Co-signature as Attending Physician, Toby Darby MD. m a2 Signatures: Dispatcher [employer] Dat Weinstein PA PA jmm Umadhay, Felix, RN Toby Salazar MD MD ma2 Jesi QuinonesAnnalisa mw2 Estefania Ragsdale RN RN ll2 Cindy Bacon RN RN ll1 Corrections: (The following items were deleted from the chart) 10/17 02:30 02:14 10/17/2020 02:14 Discharged to Home. Impression: Upper abdominal pain, ll2 unspecified. Condition is Stable. Prescriptions for Zofran 4 mg Oral Tablet - take 1 tablet by ORAL route every 12 hours As needed; 20 tablet. and Forms are Medication Reconciliation Form, Thank You Letter, Antibiotic Education, Prescription Opioid Use. Follow up: Private Physician; When: Tomorrow; Reason: Continuance of care. ma2
[2020-10-17 04:15] VITALS: TEMP 98.5
[2020-10-17 04:18] VITALS: BP 118/71; O2SAT 97
--- NOTE | 2020-10-17 12:59 | RAD REPORT ---
EXAM DESCRIPTION: CT - Abdomen Pelvis W Contrast - 10/17/2020 6:22 am RadLex: CT ABDOMEN PELVIS WITH IV CONTRAST CLINICAL HISTORY: ABD PAIN. COMPARISON: None. TECHNIQUE: CT of the abdomen and pelvis was performed following intravenous administration of iodina power contrast. Arterial phase images were obtained through the abdomen, and portal venous phase images were obtained through the abdomen and pelvis. Oral contrast was not administered. Axial, coronal, an d sagittal 3 mm soft tissue window reconstructions were created and sent to PACS. This exam was performed according to our departmental dose-optimization program, which includes autom ated exposure control, adjustment of the mA and/or kV according to patient size and/or use of iterati ve reconstruction technique. FINDINGS: Thoracic: No significant abnormality. Hepatobiliary: No concerning hepatic lesion identified. Nonspecific mild hepatomegaly, measuring 19.5 cm craniocaudal, possibly Marii lobe configuration, normal variant. The hepatic and portal veins ar e patent. The gallbladder is unremarkable. No biliary ductal dilatation. Pancreas: Unremarkable. Spleen: Unremarkable. Gastrointestinal: No evidence of bowel obstruction or perienteric inflammation. The appendix is juliet l. Adrenals: No abnormality identified in either adrenal gland. Renal: No concerning parenchymal abnormality in either kidney. No hydronephrosis or urolithiasis. Bladder/Reproductive: Unremarkable appearance of the urinary bladder by CT technique. Retroverted ret roflexed configuration of the uterus. Intrauterine device in place towards the uterine fundus, with t he anterior arm at the anterior subserosal margin of the uterus, possibly tilted and/or partially wit hin the myometrium (sagittal series 503 image 59). Grossly unremarkable CT appearance of the ovaries. Vascular/Lymphatics: No lymphadenopathy identified by CT size criteria. Abdominal aorta is normal in caliber. Musculoskeletal: No concerning osseous lesion identified. 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 Fluid / peritoneum: No significant free fluid. No free intraperitoneal air identified. IMPRESSION 1. No acute abnormality identified in the abdomen or pelvis by CT. 2. Intrauterine device in place, possibly tilted or partially within the myometrium, of uncertain ( if any) clinical significance. Electronically signed by: Mariah Ordaz MD 10/17/2020 12:32 AM REED REPAIRER Due to temporary technical issues with the PACS/Fluency reporting system, reports are being signed by the in house radiologists without review as a courtesy to insure prompt reporting. The interpreting radiologist is fully responsible for the content of the report.
--- OUTSIDE RECORDS SUMMARY | 2020-10-18 02:22 | XMS REPORT | Continuity of Care Document ---
:1990 Author Organization [facility] Care Team Providers Name Role Phone [facility] Unavailable Un available Problems Problem Status Onset Classification Date Comments Sourc e Date Reported CTX Active [address] VAGINAL DEL Active [address] Patient Resolved Problem 12/17/2016 [facility] currently [facility] (finding) Medications Medication Details Route Status Patient Ordering Order Source Instructions Provider Date tramadol 50 mg = 1 tab, Active [place] hydrochloride 50 PO, Q4H, PRN 2016 De dical MG Oral Tablet Pain Score Center 4-6, X 7 day, # 42 tab, 0 Refill(s) ibuprofen 600 mg 600 mg = 1 Active [facility] [place] oral tablet tab, PO, Q6H, 2017 Medica l X 14 day, # 56 Center tab, 0 Refill(s) fentaNYL (ANES) Route: IV, Inactive [place] Drug form: 2017 Medical INJ, ONCE, Center Stop date: 12/13/16 13:07:00 CDT bupivacaine (ANES) Route: Inactive [place] INTRATHECAL, 2016 Medical Drug Form: Center INJ, ONCE, Stop date: 12/13/16 13:07:00 CDT metoclopramide Route: [place], [place] ([place] Drug form: 2017 Medical INJ, ONCE, Center Stop date: 12/13/16 13:07:00 CDT famotidine (ANES) Route: IV, Inactive [facility] Drug form: 2017 Medical INJ, ONCE, Center Stop date: 12/13/16 13:07:00 CDT ondansetron (ANES) Route: IV, Inactive [facility] Drug form: 2017 Medical INJ, ONCE, Center Stop date: 12/13/16 13:07:00 CDT morphine Sulfate Route: IV, Inactive [place] (ANES) Drug form: 2017 Medical INJ, ONCE, Center Stop date: 12/13/16 13:02:00 CDT Ondansetron Notes: (Same No Longer [place] as: Zofran) Active 2017 Medical MEDICATION Center WASTE Product Size: 4 mg Product Wasted: ___ mg Flumazenil Notes: (Same No Longer Jose Armando as as: Romazicon) Active 2016 Medical Center Hydromorphone Notes: Same No Longer [place] as: Dilaudid Active 2017 [facility] Center Ketorolac 4 days Inactive Josh s MEDICATION 2017 Medical WASTE Center Product Size: 30 mg Product Wasted: ___ mg Ephedrine 5 mg, 1 mL, No Longer Kadi Route: IVP, Active 2016 Medical Drug form: Center INJ, Q5Min, Dosing Weight 78.636, kg, PRN Low Blood Pressure, Start date: 12/13/16 12:39:00 CDT, Duration: 30 day, Stop date: 01/12/17 12:38:00 CDT Naloxone Notes: Same as No Longer Jose Armando as Narcan Active 2016 [facility] Center Fentanyl Notes: (Same No Longer [place] as: Sublimaze) Active 2016 [facility] Preservative Center free. Labetalol 10 mg, 2 mL, No Longer Jose Armando s Route: IVP, Active 2016 Medical Drug form: Center INJ, Q5Min, Dosing Weight 78.636, kg, PRN Elevated BP, Start date: 12/13/16 12:39:00 CDT, Duration: 5 doses or times, Stop date: 12/14/16 0:00:00 CDT Hydralazine Notes: (Same No Longer [place] as: Active 2016 Medical Apresoline) Center Push over 5 minutes Promethazine Notes: Do not No Longer Kadi give IV push. Active 2016 Medical (Same as: Center Phenergan) LR 1000 mL INJ Route: IV, Inactive [place] (ANES) Total Volume: 2017 Medical 1,000, Start Center date: 12/13/16 12:08:00 CDT, Stop date: 12/13/16 13:08:00 CDT 1 tab, Route: No Longer Multivitamins oral PO, Drug Form: Active 2016 Medical tablet TAB, Dosing Center Weight 78.636, kg, Daily, Start date: 12/13/16 9:00:00 CDT, Duration: 30 day, Stop date: 01/11/17 9:00:00 CDT Ibuprofen Notes: (Same No Longer as: Motrin) Active 2017 Medical "Do Not Crush" Center Take with food. 0.5 ML Bordetella Notes: (Tdap ) No Longer 12/13 [place] pertussis For Adolecent Active 2016 Medical filamentous and Adult use Center hemagglutinin For IM Use. vaccine, Same as: inactivated 0.01 Adacel (Tdap) MG/ML / Bordetella pertussis fimbriae 2/3 vaccine, inactivated 0.01 MG/ML / Bordetella pertussis pertactin vaccine, inactivated 0.006 MG/ML / Bordetella pertussis toxoid vacci M-M-R II Notes: (Same No Longer [place] as: M-M-R II) Active 2016 Medical (measles-mumps Center -rubella virus vaccine 0.5 ml INJ VL) WASTE: F/P - Red; E -Red GIVE PRIOR TO DISCHARGE Tramadol Notes: Not to No Longer s exceed Active 2016 Medical 400mg/day. Center (Same As: Ultra) Methylergonovine Notes: (Same No Longer [place] as:Methergine) Active 2017 Medical Center Benzocaine 200 Notes: (Same No Longer [place] MG/ML Topical As: Active 2016 Medical [place] [Dermoplast] Dermoplast) C enter WASTE: Aerosol - Return to Pharmacy FOR EXTERNAL USE ONLY zolpidem Notes: (Same No Longer As: Ambien) Active 2017 Medical Center Docusate Notes: (Same No Longer [place] as: Colace) Active 2017 Medical (Do Not Crush) Center Ondansetron Notes: (Same No Longer Eleazar francis as: Zofran) Active 2017 Medical MEDICATION Center WASTE Product Size: 4 mg Product Wasted: ___ mg lanolin topical 1 appl, Route: No Longer [facility] TOP, PRN, Drug Active 2016 Medical form: OINT, Center PRN Other -See Comment, Start date: 12/13/16 0:13:00 CDT, Duration: 30 day, Stop date: 01/12/17 0:12:00 CDT Bisacodyl Notes: (Same No Longer [place] As: Dulcolax, Active 2016 Medical [place]isco-Lax) Center Lactated Ringers 1,000 mL, No Longer [place] 1,000 mL Rate: 100 Active 2017 Medical ml/hr, Infuse Center over: 10 hr, Route: IV, Dosing Weight 78.636 kg, Total Volume: 1,000, Start date: 12/13/16 0:13:00 CDT, Duration: 30 day, Stop date: 01/12/17 0:12:00 CDT NS-Oxytocin 30 30 unit, 500 No Longer [place] units 500 ml 30 mL, Rate: 42 Active 2016 Med ical unit ml/hr, Infuse Center over: 11.9 hr, Dosing Weight 78.636, kg, Route: IV, Total Volume: 500 mL, Start date: 12/13/16 0:13:00 CDT, Duration: 2 day, Stop date: 12/15/16 0:12:00 CDT, Replace Every: 11.9 hr Carboprost Notes: (Same No Longer Jose Armando as As: Hemabate) Active 2017 Medical Center Misoprostol Notes: (Same [place] Longer [place] as:Cytotec) Active 2017 Medical Take with food Center Famotidine Notes: (Same No Longer Jose Armando as as: Pepcid) Active 2017 Medical Can be dilute Center in 5-10cc NS IVP: Slow IV push over at least 2 minutes. Citric Acid / Notes: (Same No Longer [facility] sodium citrate As: Bicitra, Active [address] [facility] Cytra-2) Center Sodium citrate-citric acid (500-334 mg/5 mL): 1 mL contains sodium 1 mEq/mL and bicarbonate 1 mEq/mL Methylergonovine Notes: (Same No Longer [place] as:Methergine) Active 2017 Medical Center NS-Oxytocin 30 30 unit, 500 No Longer [place] units 500 ml 30 mL, Rate: Active 2017 Medica l unit Titrate, Center Dosing Weight 78.636, kg, Route: IV, Total Volume: 500 mL, Start date: 12/12/16 18:58:00 CDT, Duration: 2 day, Stop date: 12/14/16 18:57:00 CDT, Replace Every: 24 hr Lidocaine Notes: (Same No Longer [place] Hydrochloride 10 as: Xylocaine) Active 2017 Medical MG/ML Injectable Center Solution Terbutaline Notes: DO No Longer Jose Armando as NOT USE IN Active 2017 Medical [employer] Center (Same As: Brethine) Acetaminophen 325 Notes: (Same No Longer [place] MG / Hydrocodone as: [place] Active 2016 Medic al Bitartrate 5 MG 325/5) Do not C enter Oral Tablet exceed 4gm/day of acetaminophen. Ondansetron Notes: (Same No Longer [place] as: Zofran) Active 2017 Medical MEDICATION Center WASTE Product Size: 4 mg Product Wasted: ___ mg Butorphanol Notes: (Same No Longer [place] As: Stadol) Active 2017 Medical MEDICATION Center WASTE Product Size: 2 mg Product Wasted: ___ mg Ibuprofen Notes: (Same No Longer [place] as: Motrin) Active 2017 Medical "Do Not Crush" Center Take with food. Lactated Ringers 1,000 mL, No Longer [place] 1,000 mL Rate: 125 Active 2017 Medical ml/hr, Infuse Center over: 8 hr, Route: IV, Dosing Weight 78.636 kg, Total Volume: 1,000, Start date: 12/12/16 18:21:00 CDT, Duration: 30 day, Stop date: 01/11/17 18:20:00 CDT NS-Oxytocin 30 30 unit, 500 No Longer [place] units 500 ml 30 mL, Rate: 42 Active 2016 Med ical unit ml/hr, Infuse Center over: 11.9 hr, Dosing Weight 78.636, kg, Route: IV, Total Volume: 500 mL, Start date: 12/12/16 18:21:00 CDT, Duration: 2 day, Stop date: 12/14/16 18:20:00 CDT, Replace Every: 11.9 hr Calcium Chloride 1,000 mL, Inactive [place] 0.0014 MEQ/ML / 1,000 ml/hr, 2016 Med ical Potassium Chloride Infuse Over: 1 Center 0.004 MEQ/ML / hr, Route: IV, Sodium Chloride 1,000, Drug 0.103 MEQ/ML / form: INJ, Sodium Lactate ONCE, Dosing 0.028 MEQ/ML Weight 78.636 Injectable kg, Start Solution date: 12/12/16 18:21:00 CDT, Stop date: 12/12/16 18:21:00 CDT, Bolus for regional anesthesia per unit protocol Allergies, Adverse Reactions, Alerts No Known Medication Allergies Immunizations No Data Provided for This Section Results Order Name Results Value Reference Date Interpretation Comments Katherine rce Range HEMATOLOGY Monocytes # 0.8 0.0 - 0.8 12/[address] HEMATOLOGY Segs-Bands # 13.4 1.5 - 8.1 12/[address] HEMATOLOGY Lymphocytes # 1.5 1.0 - 5.5 12/[address] HEMATOLOGY Segs 85.2 45.0 - 75.0 12/[address] HEMATOLOGY Lymphocytes 9.8 20.0 - 40.0 12/[address] HEMATOLOGY Monocytes 4.8 2.0 - 12.0 12/[address] HEMATOLOGY Basophils 0.1 0.0 - 1.0 12/[address] HEMATOLOGY Eosinophils 0.1 0.0 - 4.0 12/[address] HEMATOLOGY MPV 9.9 7.4 - 10.4 12/[address] HEMATOLOGY RDW 20.1 11.5 - 14.5 12/[address] HEMATOLOGY Platelet 120 133 - 450 12/[address] HEMATOLOGY MCHC 32.4 32.0 - 36.0 12/[address] HEMATOLOGY Hct 32.1 36.0 - 48.0 12/[address] HEMATOLOGY MCH 26.8 27.0 - 31.0 12/13 [facility] [address] [place] [address] HEMATOLOGY Hgb 10.4 12.0 - 16.0 12/13 [facility] HEMATOLOGY MCV 82.7 80.0 - 98.0 12/13 [facility]2016 [facility] HEMATOLOGY RBC 3.89 4.20 - 5.40 12/[address] HEMATOLOGY WBC 15.8 3.7 - 10.4 12/13 [facility] [address] [place] [address] BLOOD BANK Antibody Scrn Negative 12/13 Jose Armando as RESULTS (12/12/16 7:09 PM) [facility] BLOOD BANK ABO/Rh O POS 12/13 [facility] RESULTS [facility] HEMATOLOGY [facility] Occasional 12/[address] HEMATOLOGY Eosinophils # 0.1 0.0 - 0.5 12/13 [facility] HEMATOLOGY Monocytes # 0.6 0.0 - 0.8 12/13 [facility] HEMATOLOGY Lymphocytes # 2.1 1.0 - 5.5 12/13 [facility] HEMATOLOGY Segs-Bands # 8.7 1.5 - 8.1 12/13 [facility] HEMATOLOGY Basophils 0.3 0.0 - 1.0 12/13 [facility] [address] [place] [address] HEMATOLOGY Eosinophils 0.7 0.0 - 4.0 12/13 [facility] HEMATOLOGY Monocytes 5.2 2.0 - 12.0 12/[address] HEMATOLOGY Lymphocytes 18.2 20.0 - 40.0 12/13 [facility] HEMATOLOGY Segs 75.6 45.0 - 75.0 12/13 [facility]2016 [facility] HEMATOLOGY RDW 19.6 11.5 - 14.5 12/[address] HEMATOLOGY MCHC 32.8 32.0 - 36.0 12/13 [facility]2016 [facility] HEMATOLOGY MCH 27.2 27.0 - 31.0 12/[address] HEMATOLOGY MCV 82.8 80.0 - 98.0 12/[address] HEMATOLOGY Hct 33.0 36.0 - 48.0 12/13 [facility]2016 [facility] HEMATOLOGY Hgb 10.8 12.0 - 16.0 12/[address] HEMATOLOGY RBC 3.99 4.20 - 5.40 12/13 [facility] HEMATOLOGY WBC 11.5 3.7 - 10.4 12/13 [facility] HEMATOLOGY MPV 9.9 7.4 - 10.4 12/13 [facility] HEMATOLOGY Platelet 130 133 - 450 12/13 [facility] IMMUNOLOGY Hep Bs Ag Negative Negative [facility] (12/12/16 7:09 PM) [place] IMMUNOLOGY HIV. Negative Negative 12/13 [facility] *NA* [facility] (12/12/16 7:09 PM) [place] IMMUNOLOGY Treponemal Non Reactive Non 12/13 [facility] [place] [facility] *NA* [facility] (12/12/16 7:09 PM) [place] Pathology Reports No Data Provided for This Section Diagnostic Reports No Data Provided for This Section Consultation Notes No Data Provided for This Section Discharge Summaries No Data Provided for This Section History and Physicals No Data Provided for This Section Vital Signs Vital Sign Value Date Comments Source Respitory Rate 20 12/15/2016 [facility] Systolic (mm Hg) 121 12/15/2016 [facility] Diastolic (mm Hg) 72 12/15/2016 [facility] Temperature Oral (F) 99.6 F 12/15/2016 [facility] Heart Rate 94 12/15/2016 [facility] Heart Rate 103 12/14/2016 [facility] Respitory Rate 18 12/14/2016 [facility] Systolic (mm Hg) 121 12/14/2016 [facility] Diastolic (mm Hg) 73 12/14/2016 [facility] Temperature Oral (F) 99.5 F 12/14/2016 [facility] Respitory Rate 18 12/14/2016 [facility] Systolic (mm Hg) 103 12/14/2016 [facility] Diastolic (mm Hg) 65 12/14/2016 [facility] Temperature Oral (F) 98.9 F 12/14/2016 [facility] Heart Rate 102 12/14/2016 [facility] Weight 78.636 12/12/2016 [facility] Height 157.48 cm 12/12/2016 [facility] BMI Calculated 31.71 12/12/2016 [facility] Weight 78.636 12/12/2016 [facility] Height 157.48 cm 12/12/2016 [facility] BMI Calculated 31.71 12/12/2016 [facility] Encounters Location Location Encounter Encounter Reason Attending ADM OK Stat us Source Details Type Number For Provider Date Date Visit [facility] Inpatient [id number] Agnes 12/12 12/15 [facility] Procedures No Data Provided for This Section Assessment and Plan Assessment and Plan Date Source Extracted from:Title: Clinical Document 12/15/2016 [facility] Author: Tracee Foy MD Date: 12/14/16 R1 Note: S: Notified by RN of fever. Pt denies he adache, nausea, vomitting, diarrhea, neck pain, dysuria, flank pain. Mild post operative abdominal pain. Endorses congestion however present through entire pregna ncy and has not change. C/o of mild sore throat. Mainly complains of tenderness 2/2 milk let down and this this could be the cause of her fever. Reports she does not want to breast feed and would like t o dry her milk supply. Denies redness or localized swelling on her breast. O:Vitals Tmp(F) Tmp(C) Ttype BP MAP Pulse RR SpO2 FIO2 ETCO2 12/14 06:45 100.7 38.17 oral ----- --- --- -- --- --- --- 12/14 05:55 100.2 37.89 oral ----- --- --- -- --- --- --- 12/14 04:40 99.1 37.28 oral ----- --- 76 -- --- --- --- 12/13 23:20 97.8 36.56 oral 126/75 --- 71 18 --- --- --- 12/13 16:13 99.0 37.22 oral 106/74 --- 98 18 98 --- --- 24 Hr Tmax: 100.7F (38.17c) at 12/14 06: 45 24 Hr Tmin: 97.8F (36.56c) at 12/13 23:20 Gen: NAD CV: RRR Breasts: No erythema, mild engorgement, no fluctaunt areas Pulm: CTAB Abd: soft, approp tender, ND, FF, Incision c/d/i w/ dermabod Back: No CVAT Cnc Programmer: lochia wnl, no foul smelling odor. Ext: calves non-ttp, no significant edema or erythema. Labs: O+ / Ab neg RPR NR HepBsAg Neg HIV Neg A/P: 26 y/o , s/p TSVD and BTL is doing well. 1. PPD#2 s/p TSVD, POD#1 s/p BTL, VSS Isolated PP Fever: 100.7 x 1. Physical e xam benign. ROS + for milk let down and mild sore throat. PE w/ appropriate post op abdominal tenderness. Will continue to monitor and reevaluate. 2. Heme: Hgb 10.4 EBL 300cc + 10 cc (o perative). Chronic Anemia. No S/Sx of anemia. 3. Pain: controlled on current regimen. 4. GI/: Tolerated regular diet. Voiding freely. 5. Rh+ / Rb immune /Br / BCM S/p BTL 6. Obesity. BMI: 32. Dispo: Routine PP care. Discharge home today or tomorrow. Wi ll reassess. Tracee Foy MD PGY-1 Addendum by Moriah Disla MD on 12/14/2016 21:04 R1 PM note S: Patient reports that after she took a nap and had some tylenol she felt much better. O: Vitals Tmp(F) Pulse BP RR SpO2 FIO2 12/14 20:11 99.6 94 121/72 20 --- --- 12/14 16:00 99.5 103 121/73 18 99 --- 12/14 08:30 98.9 102 103/65 18 98 --- 12/14 06:45 100.7 --- ----- -- --- --- 12/14 05:55 100.2 --- ----- -- --- --- 24 Hr Tmax: 100.7F (38.17c) at 12/14 06: 45 Vital Signs are the last 5 in the past 48 hours. Cards: RRR Lungs: CTAB A/P: 26 y/o , s/p TSVD and BTL is doing well. 1. PPD#2 s/p TSVD, POD#1 s/p BTL, VSS Isolated PP Fever: 100.7 x 1. Physical e xam benign. ROS + for milk let down and mild sore throat. PE w/ appropriate post op abdominal tenderness. Patient reports feeling better overall after nap and Receiving some Tylenol. -Patient has not spiked any other temps since the 100.7. -Will D/C patient with precautions this Evening. Moriah Disla MD PGY-1 Extracted from:Title: L&D H&P Author: Agnes Jacob MD Date: 12/12/16 History and Physical LMP: 03/16/16 EDC: 12/11/16 EGA: 40w1d HPI: 26yo at 40w1d redated by 22 wk MFM sono with h/o anemia presents for contractions. Stated her contractions started this morning, stopped for several hours, and then resumed at about 3pm. The y are mostly in her back radiating to he r lower abdomen. Now every 5-10 minutes apart, 03/17. Was seen in clinic yesterday and SCE was 1cm Patient reports + FM. Patient denies LOF, VB, discharge, dysuria. PNC: UT since 19 wks, last appointment on 12/11/16. * Dated as above. * Hospitalizations: none * PNL: O+/Ab (neg), RI, RPRNR, HBsAG neg , 3THIV neg, 1h GTT 131 , Hgb 9.4, GBS neg * US: 22wk [facility] anatomy sono, male, anatomy wnl, post plac, E FW 43rd %tile * Anemia: Last hgb 9.4, on iron, endorses good compliance *H/o macrosomic baby: largest [id number], no shoulder dystocia. Current EFW 3479g on ultrasound today. Desires trial of labor. * BCM: desires BTL, consents signed 09/30/16 OB History: --2011: TSVD, 40wks, [id number], no complications --2014: TSVD, 41wks, [id number], no complications [employer]ISTANT History: 13yo/Regular/7d, Denies h/o abnormal pap smears , Denies h/o STDs PMH: denies h/o asthma, diabetes, hypert ension, seizures, thyroid disease, cancer PSH: denies Meds: PNV, iron Allergies: NKDA Family History: denies h/o uterine, breast, ovarian, or col on cancer Social History: denies tobacco, alcoho l, drugs. Lives with and children, denies domestic abuse, feels safe at home. Physical Exam BP 128/61, HR 86, O2 99% RA Gen: Appears uncomfortable, A&O x3 CV: RRR Pulm: CTAB Abd: soft, NTTP, + BS, gravid, 3600 g by Adams Ext: calves non-ttp, no c/c/e SVE: /-2 , at 1800 hour FHT: baseline 120s , + accelerations, - decelerations, moderate variability, Category I strip [place]: contractions q 2-4 minutes US: cephalic, posteiror placenta, EFW 3479g, VELIA 9.79cm A/P: 26yo at 40w1d redated by 22 wk MFM sono with h/o anemia presents for contractions. * Latent labor. SVE 1cm yesterday in cli criselda, now /-2 with regular contractions on toco. Will admit to L&D for delivery. * SIUP: Category I Strip, male , 3600g by Adams * GBS neg / HIV neg * FHTs: Cat I * US: cephalic, posteiror placenta, EFW 3479g, VELIA 9.79cm * Br + Vijay / Epidural - considering / BCM - BTL, consents laci id * Anemia: Last hgb 9.4, on iron, endorses good compliance *H/o macrosomic baby: largest [id number], no shoulder dystocia. Current EFW 3479g on ultrasound today. Desires trial of labor. Patient d/w Dr. Samson (R4) Diana Turk M.D. Resident Physician | PGY2 Department of Obstetrics, Gynecology and Reproductive Scienc es [facility] R4 Addendum. Ms. Luis is a 26 yo @ 40w1d b y doc 22 wk US admitted in latent labor. 1. Latent labor. SVE /-2. Will start pitocin 2x2s and am niotomy prn. 2. Term IUP. FHTs cat 1. 3. Cephalic / EFW 3479g 4. GBS neg / 3T HIV neg 5. WE 6. Anemia. Will get CBC and T&C prn. 7. h/o macrosomic baby. Largest baby 9#1 3, no shoulder dystocia. This baby is smaller. Patient discussed w Dr. Jacob. Tonia Carrion MD, PGY-4 Attending Addendum I discussed the patient with the residen t and reviewed the patient's chart. I agree with the plan of care as stated by the resident above. Agnes Jacob MD #[id number] [place] [facility] [employer]URANCE [employer]IC[employer] Pager: [phone] Plan of Care No Data Provided for This Section Social History Social History Date Source Social History TypeResponse 12/12/2016 [facility] Smoking Status Never smoker; Previous treatment: None; Ready to change: No; Concerns about tobacco use in household: No; Exposure to Tobacco Smoke None; Cigarette Smoking Last 365 Days No; Reg Smoking Cessation Counseling No Family History No Data Provided for This Section Advance Directives No Data Provided for This Section Functional Status No Data Provided for This Section
--- OUTSIDE RECORDS SUMMARY | 2020-10-18 02:23 | XMS REPORT | Continuity of Care Document ---
:1990 Author Organization [facility] t Address [address] [place] [address] Care Team Providers Name Role Phone Agnes Jacob Attending Clinician Debi Jacob Admitting Clinician Problems Condition Condition Condition Status Onset Resolution Last Treating Co mments Source Name Details Category Date Date Treatment Clinician Date CTX Diagnosis Active 2016-12-19 Mem oria 4-06 21:52:00 l CTX 00:00: David 00 Active 12/12/2016 [facility] VAGINAL Diagnosis Active 2015-092016-11-30 Me moria DEL -30 15:36:00 l VAGINAL 06:00: David DEL 00 Active 08/07/2016 [facility] Patient Problem Resolve 2016-12-17 2016-12-17 Memoria currently d 3-13 00:35:05 00:35:05 l Patient 00:00: Cary nn (finding) currently 00 (finding) Resolved 11/18/2013 Problem 12/17/2016 [facility] Allergies, Adverse Reactions, Alerts This patient has no known allergies or adverse reactions. Social History Smoking Status Start Date Stop Date Source Social History [facility] Medications Ordered Filled Start Stop Current Ordering Indication Dosage Frequency Signature Comments Components Source Medication Medication Date Date Medication? Clinician (SIG) Name Name tramadol Yes 50 mg = 1 Akash richard hydrochlori 4-08 tab, PO, l de 50 MG 14:51: Q4H, PRN [place] nn Oral Tablet 00 Pain Score 4-6, X 7 day, # 42 tab, 0 Refill(s) ibuprofen Yes 600 mg = 1 Me moria 600 mg oral 4-08 tab, PO, l tablet 14:51: Q6H, X 14 Dick n 00 day, # 56 tab, 0 Refill(s) bupivacaine No Route: Akash richard (ANES) 12-13 INTRATHECA l 18:07: L, Drug Form: INJ, ONCE, Stop date: 12/13/16 13:07:00 CDT metoclopram No Route: IV, Memoria lillian (ANES) 12-13 Drug form: l 18:07: INJ, ONCE, [place] 00 Stop date: 12/13/16 13:07:00 CDT famotidine No Route: IV, M emoria (ANES) 12-13 Drug form: l 18:07: INJ, ONCE, [place] 00 Stop date: 12/13/16 13:07:00 CDT ondansetron No Route: IV, Memoria (ANES) 12-13 Drug form: l 18:07: INJ, ONCE, Stop date: 12/13/16 13:07:00 CDT fentaNYL No Route: IV, Mem oria (ANES) 12-13 Drug form: l 18:07: INJ, ONCE, Stop date: 12/13/16 13:07:00 CDT morphine No Route: IV, Mem oria Sulfate 12-13 Drug form: l (ANES) 18:02: INJ, ONCE, [place] Stop date: 12/13/16 13:02:00 CDT Ondansetron No Notes: Akash richard 12-13 (Same as: l 17:39: Zofran) MEDICATION WASTE Product Size: 4 mg Product Wasted: ___ mg Flumazenil No Notes: Memor ia 12-13 (Same as: l 17:39: Romazicon) Hydromorpho No Notes: Akash richard ne 12-13 Same as: l 17:39: Dilaudid Ketorolac Yes 4 days Memor ia 12-13 l 17:39: MEDICATION WASTE Product Size: 30 mg Product Wasted: ___ mg Ephedrine No 5 mg, 1 Memor ia 12-13 mL, Route: l 17:39: IVP, Drug form: INJ, Q5Min, Dosing Weight 78.636, kg, PRN Low Blood Pressure, Start date: 12/13/16 12:39:00 CDT, Duration: 30 day, Stop date: 01/12/17 12:38:00 CDT Naloxone No Notes: Memoria 4-07 Same as l 17:39: Narcan Fentanyl No Notes: Memoria 4- (Same as: l 17:39: Sublimaze) Preservat avinash free. Labetalol No 10 mg, 2 Akash richard 4-07 mL, Route: l 17:39: IVP, Drug form: INJ, Q5Min, Dosing Weight 78.636, kg, PRN Elevated BP, Start date: 12/13/16 12:39:00 CDT, Duration: 5 doses or times, Stop date: 12/14/16 0:00:00 CDT Hydralazine No Notes: Akash richard 07 (Same as: l 17:39: Apresoline ) Push over 5 minutes Promethazin No Notes: Do M emoria e 4-07 not give l 17:39: IV push. David 00 (Same as: Phenergan) LR 1000 mL No Route: IV, M emoria INJ (ANES) - Total l 17:08: Volume: David 1,000, Start date: 12/13/16 12:08:00 CDT, Stop date: 12/13/16 13:08:00 CDT No 1 tab, Memoria Multivitami 12-13 Route: PO, l ns oral 14:00: Drug Form: Herm marleni tablet 00 TAB, Dosing Weight 78.636, kg, Daily, Start date: 12/13/16 9:00:00 CDT, Duration: 30 day, Stop date: 01/11/17 9:00:00 CDT Ibuprofen No Notes: Memori a 4-07 (Same as: l 11:00: Motrin) [place] 00 "Do Not Crush" Take with food. 0.5 ML No Notes: Memoria Bordetella 4-07 (Tdap ) l pertussis 06:00: For [place] filamentous 00 Adolecent hemagglutin and Adult in vaccine, use For IM inactivated Use. Same 0.01 MG/ML as: Adacel / (Tdap) Bordetella pertussis fimbriae 2/3 vaccine, inactivated 0.01 MG/ML / Bordetella pertussis pertactin vaccine, inactivated 0.006 MG/ML / Bordetella pertussis toxoid vacci M-M-R II No Notes: Memoria 12-13 (Same as: l 06:00: M-M-R II) [place] (measles-m umps-rubel la virus vaccine 0.5 ml INJ VL) WASTE: F/P - Red; E -Red GIVE PRIOR TO DISCHARGE Tramadol No Notes: Not Mem oria 12-13 to exceed l 05:13: 400mg/day. [place] (Same As: Ultram) Methylergon No Notes: Akash richard ovine 12-13 (Same l 05:13: as:Metherg [place] ine) Benzocaine No Notes: Memor ia 200 MG/ML 12-13 (Same As: l Topical 05:13: Dermoplast Herm marleni [place] ) WASTE: [Dermoplast Aerosol - ] Return to Pharmacy FOR EXTERNAL USE ONLY zolpidem No Notes: Memoria 12-13 (Same As: l 05:13: Ambien) David 00 Docusate No Notes: Memoria 12-13 (Same as: l 05:13: Colace) (Do Not Crush) Ondansetron No Notes: Akash richard 12-13 (Same as: l 05:13: Zofran) David 00 MEDICATION WASTE Product Size: 4 mg Product Wasted: ___ mg lanolin No 1 appl, Memoria topical 12-13 Route: l 05:13: TOP, PRN, [place] 00 Drug form: OINT, PRN Other -See Comment, Start date: 12/13/16 0:13:00 CDT, Duration: 30 day, Stop date: 01/12/17 0:12:00 CDT Bisacodyl No Notes: Memori a 12-13 (Same As: l 05:13: Dulcolax, David 00 Bisco-Lax) Lactated No 1,000 mL, Akash richard Ringers 4-07 Rate: 100 l 1,000 mL 05:13: ml/hr, David 00 Infuse over: 10 hr, Route: IV, Dosing Weight 78.636 kg, Total Volume: 1,000, Start date: 12/13/16 0:13:00 CDT, Duration: 30 day, Stop date: 01/12/17 0:12:00 CDT NS-Oxytocin No 30 unit, Me moria 30 units 4-07 500 mL, l 500 ml 30 05:13: Rate: 42 Herm marleni unit 00 ml/hr, Infuse over: 11.9 hr, Dosing Weight 78.636, kg, Route: IV, Total Volume: 500 mL, Start date: 12/13/16 0:13:00 CDT, Duration: 2 day, Stop date: 12/15/16 0:12:00 CDT, Replace Every: 11.9 hr Methylergon No Notes: Akash richard ovine 4-07 (Same l 00:00: as:Metherg David 00 ine) Carboprost No Notes: Memor ia 4-07 (Same As: l 00:00: Hemabate) David 00 Misoprostol No Notes: Akash richard 4-07 (Same l 00:00: as:Cytotec David 00 ) Take with food Famotidine No Notes: Memor ia 4-07 (Same as: l 00:00: Pepcid) [place] 00 Can be dilute in 5-10cc NS IVP: Slow IV push over at least 2 minutes. Citric Acid No Notes: Akash richard / sodium 4-07 (Same As: l citrate 00:00: Bicitra, Dick n 00 Cytra-2) Sodium citrate-ci tric acid (500-334 mg/5 mL): 1 mL contains sodium 1 mEq/mL and bicarbonat e 1 mEq/mL NS-Oxytocin No 30 unit, Me moria 30 units 4-06 500 mL, l 500 ml 30 23:58: Rate: David unit 00 Titrate, Dosing Weight 78.636, kg, Route: IV, Total Volume: 500 mL, Start date: 12/12/16 18:58:00 CDT, Duration: 2 day, Stop date: 12/14/16 18:57:00 CDT, Replace Every: 24 hr Lidocaine No Notes: Memori a Hydrochlori - (Same as: l de 10 MG/ML 23:21: Xylocaine) [place] Injectable 00 Solution Terbutaline No Notes: Akash richard 12-12 DO NOT l 23:21: USE IN [place] 00 [employer] (Same As: [place]) Acetaminoph No Notes: Akash richard en 325 MG / 12-12 (Same as: l Hydrocodone 23:21: [place] nn Bitartrate 00 325/5) Do 5 MG Oral not exceed Tablet 4gm/day of acetaminop hen. Ondansetron No Notes: Akash richard - (Same as: l 23:21: Zofran) David 00 MEDICATION WASTE Product Size: 4 mg Product Wasted: ___ mg Butorphanol No Notes: Akash richard 12-12 (Same As: l 23:21: Stadol) [place] 00 MEDICATION WASTE Product Size: 2 mg Product Wasted: ___ mg Ibuprofen No Notes: Memori a 12-12 (Same as: l 23:21: Motrin) David 00 "Do Not Crush" Take with food. Lactated No 1,000 mL, Akash richard Ringers 12-12 Rate: 125 l 1,000 mL 23:21: ml/hr, [place] 00 Infuse over: 8 hr, Route: IV, Dosing Weight 78.636 kg, Total Volume: 1,000, Start date: 12/12/16 18:21:00 CDT, Duration: 30 day, Stop date: 01/11/17 18:20:00 CDT NS-Oxytocin No 30 unit, Me moria 30 units -06 500 mL, l 500 ml 30 23:21: Rate: 42 Herm marleni unit 00 ml/hr, Infuse over: 11.9 hr, Dosing Weight 78.636, kg, Route: IV, Total Volume: 500 mL, Start date: 12/12/16 18:21:00 CDT, Duration: 2 day, Stop date: 12/14/16 18:20:00 CDT, Replace Every: 11.9 hr Calcium 2017-0 Yes 1,000 mL, Memor ia Chloride -06 1,000 l 0.0014 23:21: ml/hr, [place] MEQ/ML / 00 Infuse Potassium Over: 1 Chloride hr, Route: 0.004 IV, 1,000, MEQ/ML / Drug form: Sodium INJ, ONCE, Chloride Dosing 0.103 Weight MEQ/ML / 78.636 kg, Sodium Start Lactate date: 0.028 12/12/16 MEQ/ML 18:21:00 Injectable CDT, Stop Solution date: 12/12/16 18:21:00 CDT, Bolus for regional anesthesia per unit protocol Vital Signs Vital Name Observation Time Observation Value Comments Source Diastolic (mm Hg) 2016-12-15 01:11:00 Mem orial [place] Temperature Oral (F) 2016-12-15 01:11:00 99.6 F [facility] [place] Heart Rate 2016-12-15 01:11:00 [facility] [place] Respitory Rate 2016-12-15 01:11:00 Memori al [place] Systolic (mm Hg) 2016-12-15 01:11:00 Akash rial [place] Heart Rate 2016-12-14 21:00:00 [facility] [place] Respitory Rate 2016-12-14 21:00:00 Memori al [place] Systolic (mm Hg) 2016-12-14 21:00:00 Akash rial [place] Diastolic (mm Hg) 2016-12-14 21:00:00 Mem orial [place] Temperature Oral (F) 2016-12-14 21:00:00 99.5 F [facility] [place] Respitory Rate 2016-12-14 13:30:00 Memori al [place] Systolic (mm Hg) 2016-12-14 13:30:00 Akash rial [place] Diastolic (mm Hg) 2016-12-14 13:30:00 Mem orial [place] Temperature Oral (F) 2016-12-14 13:30:00 98.9 F [facility] [place] Heart Rate 2016-12-14 13:30:00 [facility] Weight 2016-12-12 23:42:00 [facility] Height 2016-12-12 23:42:00 157.48 cm [facility] BMI Calculated 2016-12-12 23:42:00 Memori al [place] Weight 2016-12-12 22:35:00 [facility] [place] Height 2016-12-12 22:35:00 157.48 cm [facility] BMI Calculated 2016-12-12 22:35:00 Memori al [place] Procedures This patient has no known procedures. Encounters Start End Encounter Admission Attending Care Care Encounter Source Date/Time Date/Time Type Type Clinicians Facility Department ID 2016-12-12 2016-12-14 Outpatient [facility] [id number] 17:24:00 21:48:00 Agnes 00 Debi Results Test Description Test Time Test Comments Results Result Comments Source HEMATOLOGY 2016-12-13 0.8 [facility] [place] nn 10:23:00 HEMATOLOGY 2016-12-13 13.4 [facility] [place] nn 10:23:00 HEMATOLOGY 2016-12-13 1.5 [facility] [place] nn 10:23:00 HEMATOLOGY 2016-12-13 85.2 [facility] [place] nn 10:23:00 HEMATOLOGY 2016-12-13 9.8 [facility] [place] nn 10:23:00 HEMATOLOGY 2016-12-13 4.8 [facility] [place] nn 10:23:00 HEMATOLOGY 2016-12-13 0.1 [facility] [place] nn 10:23:00 HEMATOLOGY 2016-12-13 0.1 [facility] [place] nn 10:23:00 HEMATOLOGY 2016-12-13 9.9 [facility] [place] nn 10:23:00 HEMATOLOGY 2016-12-13 20.1 [facility] [place] nn 10:23:00 HEMATOLOGY 2016-12-13 120 [facility] [place] nn 10:23:00 HEMATOLOGY 2016-12-13 32.4 [facility] [place] nn 10:23:00 HEMATOLOGY 2016-12-13 32.1 [facility] [place] nn 10:23:00 HEMATOLOGY 2016-12-13 10:23:00 Test Item Value Reference Range Interpretation Comme nts MCH (test code = MCH) 26.8 pg 27.0-31.0 [facility] [id number] 10:23:0010.4[facility] HermannHEMATOLOGY 2016-12-13 10:23:0082.7[facility] ZbbyiujMARDIAWSHW9253-24-89 10:23:003.89[facility] GqsmdegJGOVTEJWHJ0573-52-39 10:23:0015.8[facility] HermannBLOOD BANK RESULTS 2016-12-13 00:09:00Negative (12/12/16 7:09 PM)[facility] PivbqheRQIKEVQUDJ5747-60-97 00:09:000.1[facility] TavwhfdDVPGNLPEWZ6722-95-71 00:09:000.6[facility] David WKWYRMNSUV5741-11-62 00:09:002.1[facility] XuyibtyFAUVBJCDRZ9386-88-69 00:09:008.7 [facility] OvlziqdEVEVYTOLQL4055-67-07 00:09:000.3[facility] HermannHEMATOLOGY 2016-12-13 00:09:000.7[facility] EoevayaUIWKYDGRHH4752-27-66 00:09:005.2[facility] IzmvtptVOLEQESQSK6774-71-91 00:09:0018.2[facility] TcicrmxSOOXJGQIUR1499-62-22 00:09:0075.6[facility] KzigcoiBFHIRZAKQO6334-99-63 00:09:0019.6[facility] David GHCHCICAVC7104-56-46 00:09:0032.8[facility] DspyrdfJPVYQSNFDS0921-40-02 00:09:00 Test Item Value Reference Range Interpretation Comments MCH (test code = MCH) 27.2 pg 27.0-31.0 [facility] XzrxqziSFPDINPDLI3401-38-94 00:09:0082.8[facility] HermannHEMATOLOGY 2016-12-13 00:09:0033.0[facility] SadsmxwCTXGAUUJIB9760-70-48 00:09:0010.8[facility] EvttzohTZOSYIHHHT2338-82-44 00:09:003.99[facility] JyoqdvsEEIXTWVDDD3244-31-91 00:09:0011.5[facility] BtucbafGXBMALVCYH8871-38-20 00:09:009.9[facility] [place] ABWNUAOIEG7236-24-80 00:09:23464Ynoyepkp EtmhluiTLNNISERBO8233-72-17 00:09:00 Negative *NA*(12/12/16 7:09 PM)[facility] KmzvqlaMOFCXFCUYP6663-13-72 00:09:00 Negative *NA*(12/12/16 7:09 PM)[facility] IwkliomKRJVRVIUZQ3563-58-86 00:09:00Non Reactive *NA*(12/12/16 7:09 PM)[facility]
== END 2020-10-17 02:30 | disposition home or self-care (01) ==
LOC: ER 21:07
DX: R10.13 Epigastric pain (principal); R11.2 Nausea with vomiting, unspecified
CPT/HCPCS: 36415; 74177; 80048; 80076; 81003; 81025; 83690; 85025; 96361; 96374; 96375; 99284; J2405; J7030; Q9967